=== PATIENT | male | born 1965 | race Two or more races ===

== ENCOUNTER 2021-01-22 15:24 | Outpatient (REF) | payer OTHER, SELFPAY ==
--- NOTE | ~2021-01-22 | XR_ITS ---
EXAMINATION: XR CHEST CLINICAL INFORMATION: COVID COMPARISON: Chest radiographs 10/02/2019 and 07/02/2007 TECHNIQUE: 2 views of the chest were obtained. FINDINGS: There are scattered subtle small airspace opacities mid and lower zones with sparing apices. No lobar or segmental airspace consolidation or effusion. The heart is normal in size. The vascularity is normal. The hilar and mediastinal contours are unremarkable. There are mild degenerative changes thoracic spine. XR/XR chest 2V IMPRESSION: Scattered small bilateral airspace opacities mid and lower zones. No effusion.
== END 2021-01-22 15:25 | disposition home or self-care (01) ==
LOC: HO.XRAY 15:24
PROVIDERS: PCP Internal Medicine; Visit Provider Emergency Medicine
DX: U07.1 COVID-19 (principal); J22 Unspecified acute lower respiratory infection
CPT/HCPCS: 71046

== ENCOUNTER 2021-09-17 13:08 | Outpatient (REF) | payer OTHER, SELFPAY ==
--- NOTE | ~2021-09-17 | US_ITS ---
EXAMINATION: US ABDOMEN COMPLETE CLINICAL INFORMATION: Right upper quadrant pain. COMPARISON: Abdominal ultrasound 02/16/2018 TECHNIQUE: Real-time imaging of the abdominal viscera. FINDINGS: PANCREAS: The head and body the pancreas are normal. The tail is not well visualized due to bowel gas. ABDOMINAL AORTA: The proximal, mid, and distal segments are normal in caliber. INFERIOR VENA CAVA: Visualized portions are normal. LIVER: The liver is normal in size. The liver contour is normal. Liver echotexture is slightly increased. No focal hepatic lesion. There is no intrahepatic biliary duct dilatation seen. GALLBLADDER: Normal. The gallbladder is physiologically distended without evidence of stones, sludge, polyps, wall thickening or pericholecystic fluid. COMMON BILE DUCT: Normal in caliber measuring 0.2 cm in diameter. RIGHT KIDNEY: There is a small 7 x 5 x 4 mm cyst exophytic to the upper to midpole. No hydronephrosis or renal calculi. The kidney measures 11.0 cm in maximum dimension. LEFT KIDNEY: Normal. No hydronephrosis. No renal calculi or focal parenchymal lesions. The kidney measures 11.8 cm in maximum dimension. SPLEEN: Normal. The spleen measures 11.2 cm in maximum dimension. FREE FLUID: None. US/US abdomen complete IMPRESSION: Slightly echogenic liver probably representing fatty infiltration. Small right renal cyst. Limited visualization of the pancreas.
== END 2021-09-17 13:09 | disposition home or self-care (01) ==
LOC: HO.US 13:08
PROVIDERS: PCP Internal Medicine; Visit Provider Emergency Medicine
DX: R10.11 Right upper quadrant pain (principal)
CPT/HCPCS: 76700

== ENCOUNTER 2022-04-01 15:12 | Outpatient (REF) | payer OTHER, SELFPAY ==
--- NOTE | ~2022-04-01 | XR_ITS ---
EXAMINATION: XR LUMBOSACRAL SPINE WITH OBLIQUES CLINICAL INFORMATION: Lower back pain. COMPARISON: None TECHNIQUE: AP, both oblique, and lateral views of the lumbar spine. Lateral view of the lumbosacral junction. FINDINGS: Normal vertebral body alignment. The lumbar lordosis is maintained. No acute fracture or subluxation. No loss of vertebral body height. Multilevel loss of intervertebral disc height with endplate osteophytes throughout the visualized thoracic and lumbar spine. Bridging anterior endplate osteophytes within the lower thoracic spine. No lytic or blastic osseous lesion. Mild bilateral facet arthropathy at L4-L5 and L5-S1. No abnormal soft tissue calcification. XR/XR lumbar spine 4V min IMPRESSION: Mild multilevel degenerative disc disease with bridging anterior endplate osteophytes within the visualized lower thoracic spine. Bilateral facet arthropathy at L4-L5 and L5-S1.
== END 2022-04-01 15:13 | disposition home or self-care (01) ==
LOC: HO.XRAY 15:12
PROVIDERS: PCP Internal Medicine; Visit Provider Emergency Medicine
DX: M54.50 Low back pain, unspecified (principal)
CPT/HCPCS: 72110

== ENCOUNTER 2022-07-22 14:39 | Outpatient (REF) | payer OTHER, SELFPAY ==
--- NOTE | ~2022-07-22 | XR_ITS ---
EXAMINATION: XR HIP, LEFT CLINICAL INFORMATION: Pain COMPARISON: None TECHNIQUE: Two views of the left hip. FINDINGS: Mild left hip arthritis, with the small osteophytes, lateral acetabular subchondral cysts. No acute fracture or dislocation. Visualized pelvic bones are intact. XR/XR hip LT min 2V IMPRESSION: Mild left hip arthritis
--- NOTE | ~2022-07-22 | XR_ITS ---
EXAMINATION: XR FOOT, LEFT CLINICAL INFORMATION: Pain. COMPARISON: None TECHNIQUE: AP, lateral, and oblique views of the left foot. FINDINGS: Soft tissue marker positioned along the medial aspect of the midfoot. Mild Hallux valgus. Mild first MTP arthritis. Small chronic appearing calcification adjacent to the medial aspect of the first metatarsal head. No visible acute fracture or dislocation. Large plantar and posterior calcaneal spur. XR/XR foot LT min 3V IMPRESSION: No radiographic evidence of acute fracture. Arthritis as above. Calculus spurring.
== END 2022-07-22 14:40 | disposition home or self-care (01) ==
LOC: HO.XRAY 14:39
PROVIDERS: PCP Internal Medicine; Visit Provider Internal Medicine
DX: M25.552 Pain in left hip (principal); M79.672 Pain in left foot
CPT/HCPCS: 73502; 73630

== ENCOUNTER 2022-08-20 14:54 | Outpatient (REF) | payer OTHER, SELFPAY ==
--- NOTE | ~2022-08-20 | XR_ITS ---
EXAMINATION: XR CHEST CLINICAL INFORMATION: Hypertension COMPARISON: None TECHNIQUE: 2 views of the chest were obtained. FINDINGS: No significant abnormality is noted involving the heart, lungs, mediastinum, bony thorax or soft tissues. XR/XR chest 2V IMPRESSION: Unremarkable chest exam
== END 2022-08-20 14:55 | disposition home or self-care (01) ==
LOC: HO.XRAY 14:54
PROVIDERS: PCP Internal Medicine; Visit Provider Internal Medicine
DX: I10 Essential (primary) hypertension (principal)
CPT/HCPCS: 71046

== ENCOUNTER 2023-06-15 09:30 | Outpatient (REF) | payer OTHER, SELFPAY ==
[2023-06-15 12:03] LABS: Alanine Aminotransferase 33 U/L (0-40); Albumin Level 4.3 g/dL (3.5-5.0); Alkaline Phosphatase 74 U/L (39-117); Anion Gap 13 (12-20); Aspartate Amino Transferase 19 U/L (5-37); Bilirubin Direct 0.3 mg/dL (0.0-0.5); Bilirubin Total 0.9 mg/dL (0.0-1.0); Blood Urea Nitrogen 13 mg/dL (9-16); Calcium 9.7 mg/dL (8.4-10.2); Carbon Dioxide 22 mmol/L (22-29); Chloride 107 mmol/L (96-108); Estimated Glomerular Filt Rate > 60; Glucose Random 116 mg/dL (60-115); Potassium 4.3 mmol/L (3.3-5.1); Sodium 138 mmol/L (135-145); Total Protein 7.3 g/dL (6.5-8.0)
[2023-06-15 12:13] LABS: Cholesterol 165 mg/dL; HDL Cholesterol 38 mg/dL; LDL Cholesterol Calculated 107 mg/dl; Triglycerides 101 mg/dL
[2023-06-15 13:17] LABS: Reflex LDLD? No
== END 2023-06-15 09:31 | disposition home or self-care (01) ==
LOC: HO.HHCL 09:30
PROVIDERS: Visit Provider Internal Medicine
DX: Z00.00 Encounter for general adult medical examination without abnormal findings (principal); E78.2 Mixed hyperlipidemia; E11.9 Type 2 diabetes mellitus without complications
CPT/HCPCS: 36415; 80048; 80061; 80076

== ENCOUNTER 2024-02-16 15:49 | Outpatient (REF) | payer OTHER, SELFPAY ==
--- NOTE | ~2024-02-16 | XR_ITS ---
EXAMINATION: XR HIP, LEFT CLINICAL INFORMATION: Pain COMPARISON: 07/22/2022 TECHNIQUE: Two views of the left hip. FINDINGS: The visualized bones are intact. The femoral head is well-positioned within the acetabulum. Small osteophytes of the hip. The articular cartilage space is maintained. No evidence of proximal femoral fracture or osteonecrosis. The soft tissues are unremarkable. XR/XR hip LT min 2V IMPRESSION: Mild osteoarthritis of the left hip. No acute abnormality compared to 07/22/2022.
== END 2024-02-16 15:50 | disposition home or self-care (01) ==
LOC: HO.HHCX 15:49
PROVIDERS: Visit Provider Internal Medicine
DX: M25.552 Pain in left hip (principal)
CPT/HCPCS: 73502

== ENCOUNTER 2024-05-09 08:29 | Outpatient (REF) | payer OTHER, SELFPAY ==
[2024-05-09 12:22] LABS: Alanine Aminotransferase 27 U/L (0-40); Albumin Level 4.2 g/dL (3.5-5.0); Alkaline Phosphatase 65 U/L (39-117); Anion Gap 11 (12-20); Aspartate Amino Transferase 25 U/L (5-37); Bilirubin Direct 0.2 mg/dL (0.0-0.5); Bilirubin Total 0.7 mg/dL (0.0-1.0); Blood Urea Nitrogen 17 mg/dL (9-16); Calcium 9.9 mg/dL (8.4-10.2); Carbon Dioxide 27 mmol/L (22-29); Chloride 106 mmol/L (96-108); Cholesterol 196 mg/dL (<200); Estimated Glomerular Filt Rate > 60; Glucose Random 120 mg/dL (60-115); HDL Cholesterol 40 mg/dL (>40); LDL Cholesterol Calculated 131 mg/dL (<100); Potassium 4.4 mmol/L (3.3-5.1); Sodium 140 mmol/L (135-145); Total Protein 7.3 g/dL (6.5-8.0); Triglycerides 128 mg/dL (<150)
[2024-05-09 12:58] LABS: Reflex LDLD? No
== END 2024-05-09 08:30 | disposition home or self-care (01) ==
LOC: HO.HHCL 08:29
PROVIDERS: Visit Provider Internal Medicine
DX: E11.9 Type 2 diabetes mellitus without complications (principal)
CPT/HCPCS: 36415; 80048; 80061; 80076

== ENCOUNTER 2024-08-27 13:36 | Emergency (ER) | payer OTHER, SELFPAY ==
[2024-08-27 13:44] VITALS: BP 110/62; PULSE 70; RESP 18; TEMP 36.9; O2SAT 97; BMI 34.1
--- NOTE | 2024-08-27 13:44 | ED_ITS ---
HPI - Skin/Abscess/Foreign Bdy General Chief complaint: Allergic Reaction Stated complaint: rash? Time Seen by Provider: 08/27/24 13:47 Source: patient, RN notes reviewed and old records reviewed Mode of arrival: ambulatory History of Present Illness ED Provider: Regina Ziegler PA-C [facility] narrative: 58-year-old male with no significant past medical history presenting to the ED complaining of pruritic rash to right inner elbow tetanus 5 days. Admits to similar symptoms in the past. Has been using OTC poison marcellus spray and lotion without relief. Denies rash to other area, SOB, throat closing sensation, new exposures Related Data Previous Rx's ?Medication ?Instructions ?Recorded hydrocortisone 1 % topical cream 1 appl topical BID PRN rash #28.4 08/27/24 grams Allergies Allergy/AdvReac Type Severity Reaction Status Date / Time Penicillins [PENICILLINS] Allergy Unknown PASS OUT Verified 08/27/24 13:45 Review of Systems Review of Systems: Yes all other systems are reviewed and are negative Constitutional: Constitutional: Reports as per [facility] Past Medical History Attestation statement: The following information was validated with the patient. Source: old records reviewed Social History Social History Do you have a plan to hurt others: No Plan Physical Exam Vital Signs: Vital Signs: Last Vital Signs Temp 98.5 F 08/27/24 13:44 Pulse 70 08/27/24 13:44 Resp 18 08/27/24 13:44 BP 110/62 08/27/24 13:44 Pulse Ox 97 08/27/24 13:44 O2 Del Method Room Air 08/27/24 13:44 BMI result Body Mass Index 34.1 Const: General: cooperative, healthy appearing and no acute distress Orientation/consciousness: patient oriented x3 Limitations: no limitations HEENT: Head: Yes normal to inspection and Yes atraumatic Ears: hearing grossly normal bilaterally General nose exam: Normal external nose present Face and sinus: Yes normal facial exam Mouth: Normal oral and palatal mucosa present, no drooling and no muffled voice Throat: Yes uvula midline, No uvula laterally displaced and No uvular edema Eyes: General: appearance normal, both eyes and all related structures EOM: EOMs intact bilaterally Neck: Neck: Yes normal visual inspection and Yes no meningeal signs Resp: Effort & Inspection: normal respiratory effort and no respiratory distress Cardio: Rate: regular rate Skin: Other: + erythematous patch noted to right ante cubital region. Not circumferential. No streaking. No open wounds/lesions. No mucous membrane or palm/sole involvement Wounds: no wounds Neuro: General: patient oriented x3, tone normal and no meningeal signs Cranial nerves: Yes CN's II-XII intact bilaterally Gait exam (Neuro): Normal gait present Extrem: General: Yes normal to inspection Medical Decision Making Medical Decision Making MDM Narrative: 58-year-old male with no significant past medical history presenting to the ED complaining of pruritic rash to right inner elbow tetanus 5 days. On exam vital signs stable, NAD, nontoxic appearing, physical exam as above consistent with dermatitis/eczema. No respiratory involvement, uvula midline, talking in complete sentences. Low suspicion for SJS/TENs or allergic reaction Plan: Topical hydrocortisone, PCP/dermatology follow-up Please refer to course for remaining clinical decision making, interpretation of labs/imaging results, and discussions with consultants and/or family members. Results discussed with patient including worrisome signs and symptoms and strict return precautions, and when to return to the emergency department. They verbalized understanding and feel safe for discharge at this time. Differential Diagnosis Differential Diagnoses: The differential diagnosis associated with the presentation includes As above External Record Review External record reviewed: Inpatient record, Office record, Outpatient record, Prior outpatient labs, Prior outpatient radiology, Primary care record and Outside ED record Tests considered The following testing was considered but not selected: As above Prescription Management I considered prescription management with: Other Discharge Plan Discharge Clinical Impression: Dermatitis Patient Disposition: Home, Self-Care Instructions: Dermatitis (ED) Additional Instructions: Please use topical hydrocortisone cream as prescribed Follow-up with her doctor as well as Dermatology If you develop any shortness of breath, throat closing sensation, persistent or worsening rash return to the ED Prescriptions: New hydrocortisone 1 % cream 1 appl topical BID PRN (Reason: rash) Qty: 28.4 0RF Referrals: [facility] [Outside] Domingo Degroot MD [Primary Care Provider] - Print Language: Russian
[2024-08-27 13:56] VITALS: BP 110/62; PULSE 70; RESP 18; TEMP 36.9; O2SAT 97
== END 2024-08-27 14:03 | disposition home or self-care (01) ==
LOC: HO.ED 14:00
PROVIDERS: Emergency Provider Emergency Medicine; PCP Internal Medicine
DX: L30.9 Dermatitis, unspecified (principal)
CPT/HCPCS: 99282; 99283

== ENCOUNTER 2024-12-02 15:29 | Outpatient (REF) | payer OTHER, SELFPAY ==
--- NOTE | ~2024-12-02 | MR_ITS ---
EXAMINATION: MR FOREARM WITHOUT THEN WITH IV CONTRAST RIGHT HISTORY: RIGHT ARM MASS. TECHNIQUE: Coronal and sagittal T1 and STIR, and axial T1 and fat-suppressed T2-weighted MR images of the right forearm were obtained. Subsequently, axial and coronal fat suppressed T1-weighted images were obtained after the intravenous administration of 10 mm Gadavist. COMPARISON: There are no prior studies for comparison. FINDINGS: There is an ovoid 8.0 x 4.8 x 1.5 cm mass of the brachioradialis muscle which demonstrates fat signal intensity on all sequences and loses signal with fat suppression. A few tiny septations are noted within the mass as well as small vessels. There is no enhancing soft tissue component. Findings are consistent with a lipoma. The remaining visualized muscles demonstrate normal signal intensity. Bone marrow signal intensity is normal. There is no elbow joint effusion. 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 Electronically signed by: Mars Eaton MD 12/05/2024 02:18 PM [facility]
--- OUTSIDE RECORDS SUMMARY | 2024-12-02 16:31 | XMS_ITS | Encounter Summary ---
Author Organization [employer] Address [address] [facility] [address] [place] [address] Care Team Providers Care Audio/Video Technician Name Role Phone Domingo Baker MD Primary Care Provide r Encounter Details Date Type Department Care Team (Late st Contact Info) Description 07/29/[address] [facility]EDS [address] [place] [address] Krystin Reeder LPN Social History Tobacco Use Types Packs/Day Years Used Date Smoking Tobacco: Never Passive Smoke Exposure: Never Smokeless Tobacco: Never Alcohol Use Standard Drinks/Week Comments Never 0 (1 standard drink = 0.6 oz pur e alcohol) Depression Answer Date Recorded Patient Health Questionnaire-9 Score 0 02/17/2023 Depression Answer Date Recorded Patient Health Questionnaire-2 Score 0 02/17/2023 Sex and Gender Information Value Date Recorded Sex Assigned at Male 06/15/2023 9:52 AM EDT Legal Sex Male 3:53 PM EDT Gender Identity Male 06/15/2023 9:52 AM EDT Sexual Orientation Straight 06/22/2023 3: 29 PM EDT Sexual Orientation Choose not to disclose 2022 3:29 PM EDT documented as of this encounter Plan of Treatment Not on file documented as of this encounter Visit Diagnoses Not on filedocumented in this encounter Additional Health Concerns Assessment Noted Time PHQ-9 Depression Total Score: 0 02/18/20 23 2:28 PM EDT documented as of this encounter Care Teams Audio/Video Technician Relationship Specialty Start Date End Date Domingo Baker MD [address] [place] [id number] PCP - General Internal Medicine 10/11/14 documented as of this encounter
--- OUTSIDE RECORDS SUMMARY | 2024-12-02 16:31 | XMS_ITS | Encounter Summary ---
Author Organization [employer] Address [address] [facility] [address] [place] [address] Care Team Providers Care Head Animal Trainer Name Role Phone Domingo Baker MD Primary Care Provide r Encounter Details Date Type Department Care Team (Late st Contact Info) Description 03/30/2023 Orders Only [facility] MED [facility] PEDS [address] [place] [address] Krystin Reeder LPN Social History Tobacco Use Types Packs/Day Years Used Date Smoking Tobacco: Never Assessed Depression Answer Date Recorded Patient Health Questionnaire-9 [...] documented as of this encounter Care Teams Head Animal Trainer Relationship Specialty Start Date End Date Domingo Baker MD [address] [place] [address] PCP - General Internal Medicine 10/11/14 documented as of this encounter
--- OUTSIDE RECORDS SUMMARY | 2024-12-02 16:31 | XMS_ITS | Encounter Summary ---
Author Organization [employer] Address [address] [facility] [address] [place] [address] Care Team Providers Care Gear Milling Machine Set Up Operator Name Role Phone Domingo Baker MD Primary Care Provide r Reason for Referral * Imaging (Routine) - Authorized Specialty Diagnoses / Procedures Referred By Contac t Referred To Contact Radiology Diagnoses Localized swelling, mass and lump, right upper limb Procedures MRI LOWER ARM / RADIUS ULNA RIGHT W WO CONTRAST Domingo Baker MD [address] [place] [address] Phone: tel: fax: [address] Phone: tel: fax: Referral ID Status Reason Start Date Expiration Date V isits Requested Visits Authorized [id number] Authorized 11/22/2024 11/22/2025 1 1 Encounter Details Date Type Department Care Team (Late st Contact Info) Description 11/22/2024 Orders Only [facility] [address] [place], [place] [phone] Domingo Baker MD [address] [place], [place] [phone] Localized swelling, mass and lump, right upper limb (Primary Dx) Social History Tobacco Use Types Packs/Day Years Used Date Smoking Tobacco: Never Passive Smoke Exposure: Never Smokeless Tobacco: Never Alcohol Use Standard Drinks/Week Comments Never 0 (1 standard drink = 0.6 oz pur e alcohol) Depression Answer Date Recorded Patient Health Questionnaire-9 Score 0 05/17/2024 Patient Health Questionnaire-9 Score 0 05/17/2024 Last PHQ-9: Questionnaire Data Not on file 0 05/17/2024 Housing Stability Answer Date Recorded What is your housing situation today? I have mandeep brumfield 05/17/[address] you li ve. Do you have problems with any of the following? None of the above 05/17/2024 Food Insecurity Answer Date Recorded Within the past 12 months, y ou worried that your food would run out before you got money to buy more: Never True 05/17/2024 Within the past 12 months,th e food you bought just didn't last and you didn't have enough money to get more: Never True 07/2024 Transportation Answer Date Recorded In the past 12 months, has l ack of transportation kept you from medical appts, meetings, work or from getting things needed for daily living? No 05/17/2024 Utilities Answer Date Recorded In the past 12 months, has t he electric, gas, oil or water company threatened to shut off services in your home? No 05/17/2024 Depression Answer Date Recorded Patient Health Questionnaire-2 Score 0 05/17/2024 Internet Access Answer Date Recorded Internet Access Q1 Yes 07/10/2024 Internet Access Q2 Not on file 07/10/2024 Sex and Gender Information Value Date Recorded Sex Assigned at Male 06/15/2023 9:52 AM EDT Legal Sex Male 3:53 PM EDT Gender Identity Male 06/15/2023 9:52 AM EDT Sexual Orientation Straight 06/22/2023 3: 29 PM EDT Sexual Orientation Choose not to disclose 2022 3:29 PM EDT documented as of this encounter Plan of Treatment Scheduled Orders Name Type Priority Associated Diagnoses Orde r Schedule MRI LOWER ARM / RADIUS ULNA RIGHT W WO CONTRAST Imaging Routine Localized swelling, mass and lump, right upper limb Expected: 11/22/2024, Expires: 11/22/2025 documented as of this encounter Visit Diagnoses Diagnosis Localized swelling, mass and lump, right upper limb- Primary documented in this encounter Additional Health Concerns Assessment Noted Time PHQ-9 Depression Total Score: 0 07/09/20 24 3:11 PM EDT documented as of this encounter Care Teams Gear Milling Machine Set Up Operator Relationship Specialty Start Date End Date Domingo Baker MD [address] [place] [address] PCP - General Internal Medicine 10/11/14 documented as of this encounter
--- OUTSIDE RECORDS SUMMARY | 2024-12-02 16:31 | XMS_ITS | Encounter Summary ---
Author Organization [employer] Address [address] [facility] [address] [place] [address] Care Team Providers Care Cell Tuber Hand Name Role Phone Domingo Baker MD Primary Care Provide r Reason for Visit * Reason Onset Date Comments Lab Orders 11/10/2024 Encounter Details Date Type Department Care Team ([facility] st Contact Info) Description 11/10/2024 Telephone [facility] MED[facility]INE [address] [place], [place] [phone] Hedy Sepulveda, RN [address] [place] [address] Lab Orders Social History Tobacco Use Types Packs/Day Years [...] PM EDT documented as of this encounter Miscellaneous Notes * Telephone Encounter - Hedy Sepulveda RN - 11/10/2024 10:31 AM EST Telephone call placed to pt. No answer, left detailed v/m informing nonfasting labs ordered and to come in at his earliest convenience to complete. Please ask pt to have labs I ordered, I forgot to mention to patient during the visit documented in this encounter Plan of Treatment Not on file documented as of this encounter Visit Diagnoses Not on filedocumented in this encounter Additional Health Concerns Assessment Noted Time PHQ-9 Depression Total Score: 0 05/17/20 24 3:11 PM EDT documented as of this encounter Care Teams Cell Tuber Hand Relationship Specialty Start Date End Date Domingo Baker MD [address] [place] [id number] PCP - General Internal Medicine 10/11/14 documented as of this encounter
--- OUTSIDE RECORDS SUMMARY | 2024-12-02 16:31 | XMS_ITS | Encounter Summary ---
Author Organization [employer] Address [address] [facility] [address] [place] [address] Care Team Providers Care Tight Barrel Inspector Name Role Phone Domingo Baker MD Primary Care Provide r Encounter Details Date Type Department Care Team (Late st Contact Info) Description 12/25/[address] [facility] MED & PEDS [address] [place] [address] Krystin Reeder LPN Social History Tobacco Use Types Packs/Day Years Used Date Smoking Tobacco: Never Assessed Sex and Gender Information Value Date Recorded [...] Diagnoses Not on filedocumented in this encounter Care Teams Tight Barrel Inspector Relationship Specialty Start Date End Date Domingo Baker MD [address] [place] [address] PCP - General Internal Medicine 10/11/14 documented as of this encounter
--- OUTSIDE RECORDS SUMMARY | 2024-12-02 16:31 | XMS_ITS | Encounter Summary ---
Author Organization [employer] Address [address] [facility] [address] [place] [address] Care Team Providers Care Digital Librarian Name Role Phone Domingo Baker MD Primary Care Provide r Reason for Visit * Reason Comments Med Refill Encounter Details Date Type Department Care Team ([facility] st Contact Info) Description 08/28/2023 Refill [facility] [address] [place], [place] [phone] Domingo Baker MD [address] [place], [place] [phone] Low vitamin D level Social History Tobacco Use Types Packs/Day Years Used Date Smoking Tobacco: Never Passive Smoke Exposure: Never Smokeless Tobacco: Never Alcohol Use Standard Drinks/Week Comments Never 0 (1 standard drink = 0.6 oz pur e alcohol) Depression Answer Date Recorded Patient Health Questionnaire-9 Score 0 02/17/2023 Housing Stability Answer Date Recorded What is your housing situation today? I have mandeep brumfield 08/26/[address] you li ve. Do you have problems with any of the following? None of the above 08/26/2023 Food Insecurity Answer Date Recorded Within the past 12 months, y ou worried that your food would run out before you got money to buy more: Never True 08/26/2023 Within the past 12 months,th e food you bought just didn't last and you didn't have enough money to get more: Never True Transportation Answer Date Recorded In the past 12 months, has l ack of transportation kept you from medical appts, meetings, work or from getting things needed for daily living? No 08/26/2023 Utilities Answer Date Recorded In the past 12 months, has t he electric, gas, oil or water company threatened to shut off services in your home? No 08/26/2023 Depression Answer Date Recorded Patient Health Questionnaire-2 [...] as of this encounter Visit Diagnoses Diagnosis Low vitamin D level documented in this encounter Additional Health Concerns Assessment Noted Time PHQ-9 Depression Total Score: 0 02/18/20 23 2:28 PM EDT documented as of this encounter Care Teams Digital Librarian Relationship Specialty Start Date End Date Domingo Baker MD [address] [place] [id number] PCP - General Internal Medicine 10/11/14 documented as of this encounter
--- OUTSIDE RECORDS SUMMARY | 2024-12-02 16:31 | XMS_ITS | Encounter Summary ---
Author Organization [employer] Address [address] 7t [place] [address] Care Team Providers Care Entertainer Or Variety Artist Name Role Phone Domingo Baker MD Primary Care Provide r Reason for Visit * Reason Comments Eye Problem Encounter Details Date Type Department Care Team ([facility] st Contact Info) Description 11/29/2024 5:40 PM EST Office Visit [facility] [address] [place] [address] Alona Rincon MD [address] [place] [address] Conjunctival hemorrhage of left eye (Primary Dx) Social History Tobacco Use Types [...] is your housing situation today? I have mandeepkeisha brumfield 05/17/[address] you [...] PM EDT documented as of this encounter Last Filed Vital Signs Vital Sign Reading Time Taken Comments Blood Pressure 122/77 11/29/2024 3:13 PM EST Pulse 69 11/29/2024 3:13 PM EST Temperature 36.7 ??C (98.1 ??F) 11/29/2024 3:13 PM ES T Respiratory Rate 16 11/29/2024 3:13 PM EST Oxygen Saturation 99% 11/29/2024 3:13 PM EST Inhaled Oxygen Concentration - - Weight 93.9 kg (207 lb) 11/29/2024 3:13 PM EST Height - - Body Mass Index 32.42 11/08/2024 12:44 PM EST documented in this encounter Progress Notes * Heather Thakur - 11/29/2024 5:40 PM EST Images from the original note were not included. Subjective Patient ID: Matthew Gong is a 58 y.o. male who presents to walk in clinic for Eye Problem. Pt reports on Thursday he was shoveling snow and felt something in his eye. He has had pain in his eye since Thursday. Pt reports he has had this happened in the past, but not as severe. He does take ASA, but no other anticoagulation. Pt follows with [facility]. He denies any vision changes. Review of Systems Constitutional: Negative for fever and unexpected weight change. Eyes: Positive for pain and redness. Respiratory: Negative for shortness of breath. Cardiovascular: Negative for chest pain. Gastrointestinal: Negative for abdominal pain. Genitourinary: Negative for difficulty urinating. Objective Visit Vitals BP 122/77 (BP Location: Left arm, Patient Position: Sitting, BP Cuff Size: Adult) Pulse 69 Temp 98.1 ??F (36.7 ??C) (Temporal) Resp 16 Body mass index is 32.42 kg/m??. Physical Exam Eyes: General: Vision grossly intact. Left eye: No foreign body. Conjunctiva/sclera: Left eye: Hemorrhage (large subconjunctival, across sparing the sclerae) present. Problem List Items Addressed This Visit Conjunctival hemorrhage of left eye - Primary Called [facility] and as recommended, advised pt supportive care. Recommended getting in to see [facility] sooner or if anything worsens. -No evidence of acute disease process. Suspect subconjunctival hemorrhage likely due to FB in eye previously. No FB visualized today. -ER precautions discussed. -Seek medical attention for worsening symptoms. I, Heather Thakur, am serving as a scribe to document services personally performed by Dr. Enrique, based on the patient's response to questions by provider and providers statements to me. documented in this encounter Miscellaneous Notes * Assessment & Plan Note - Heather Thakur - 11/29/2024 3:27 PM ESTAssociated Problem(s): Conjunctival hemorrhage of left eye Called [facility] and as recommended, advised pt supportive care. Recommended getting in to see [facility] sooner or if anything worsens. documented in this encounter Plan of Treatment Not on file documented as of this encounter Visit Diagnoses Diagnosis Conjunctival hemorrhage of left eye- Primary documented in this encounter Additional Health Concerns Assessment Noted Time PHQ-9 Depression Total Score: 0 05/17/20 24 3:11 PM EDT documented as of this encounter Care Teams Entertainer Or Variety Artist Relationship Specialty Start Date End Date Domingo Baker MD [address] [place] [address] PCP - General Internal Medicine 10/11/14 documented as of this encounter
--- OUTSIDE RECORDS SUMMARY | 2024-12-02 16:31 | XMS_ITS | Encounter Summary ---
Author Organization [employer] Address [address] [facility] 7t [place] [address] Care Team Providers Care Documentation Analyst Name Role Phone Domingo Baker MD Primary Care Provide r Reason for Visit * Reason Comments Med Refill Encounter Details Date Type Department Care Team ([facility] st Contact Info) Description 11/30/2024 Refill [facility] [address] [place], [place] [phone] Domingo Baker MD [address] [place], [place] [phone] Social History Tobacco Use Types Packs/Day Years [...] documented as of this encounter Care Teams Documentation Analyst Relationship Specialty Start Date End Date Domingo Baker MD [address] [place] [id number] PCP - General Internal Medicine 10/11/14 documented as of this encounter
--- OUTSIDE RECORDS SUMMARY | 2024-12-02 16:31 | XMS_ITS | Encounter Summary ---
Author Organization [employer] Address [address] [facility] 7t [place] [address] Care Team Providers Care Communication Studies Professor Name Role Phone Domingo Baker MD Primary Care Provide r Reason for Visit * Reason Onset Date Comments MRI LOWER ARM ORDER 11/22/2024 Encounter Details Date Type Department Care Team ([facility] st Contact Info) Description 11/22/2024 Telephone [facility] [address] [place], [place] [phone] Domingo Baker MD [address] [place] [address] MRI LOWER ARM ORDER Social History Tobacco Use Types Packs/Day Years [...] encounter Miscellaneous Notes * Telephone Encounter - Susan Sarmiento - 11/22/2024 10:32 AM EST MRI LOWER ARM needs to be WITH AND WITHOUT CONTRAST. Please update order. Thank you documented in this encounter Plan of Treatment Not on file documented as of this encounter Visit Diagnoses Not on filedocumented in this encounter Additional Health Concerns Assessment Noted Time PHQ-9 Depression Total Score: 0 05/17/20 24 3:11 PM EDT documented as of this encounter Care Teams Communication Studies Professor Relationship Specialty Start Date End Date Domingo Baker MD [address] [place] [address] PCP - General Internal Medicine 10/11/14 documented as of this encounter
--- OUTSIDE RECORDS SUMMARY | 2024-12-02 16:31 | XMS_ITS | Encounter Summary ---
Author Organization [employer] Address [address] [facility] [address] [address] 7t [place] [address] Care Team Providers Care Rn Field Case Manager Name Role Phone Domingo Baker MD Primary Care Provide r Encounter Details Date Type Department Care Team (Latest Contact Info) Description 11/08/2024 Travel Social History Tobacco Use Types Packs/Day Years [...] documented as of this encounter Care Teams Rn Field Case Manager Relationship Specialty Start Date End Date Domingo Baker MD [address] [place] [address] PCP - General Internal Medicine 10/11/14 documented as of this encounter
--- OUTSIDE RECORDS SUMMARY | 2024-12-02 16:31 | XMS_ITS | Encounter Summary ---
Author Organization [employer] Address [address] 7t [place] [address] Care Team Providers Care College Or University Department Head Name Role Phone Domingo Baker MD Primary Care Provide r Encounter Details Date Type Department Care Team (Late st Contact Info) Description 11/10/2024 Telephone [facility] [address] [place], [place] [phone] Domingo Baker MD [address] [place], [place] [phone] Social History Tobacco Use Types Packs/Day Years [...] documented as of this encounter Care Teams College Or University Department Head Relationship Specialty Start Date End Date Domingo Baker MD [address] [place] [id number] PCP - General Internal Medicine 10/11/14 documented as of this encounter
--- OUTSIDE RECORDS SUMMARY | 2024-12-02 16:31 | XMS_ITS | Encounter Summary ---
Author Organization [employer] Address [address] [facility] 7t [place] [address] Care Team Providers Care Sub Assembly Team Worker Name Role Phone Domingo Baker MD Primary Care Provide r Reason for Visit * Reason Comments Med Refill Encounter Details Date Type Department Care Team ([facility] st Contact Info) Description 03/08/2024 Refill [facility] [address] [place], [place] [phone] Domingo Baker MD 230 [place], [place] [phone] Primary hypertension Social History Tobacco Use Types Packs/Day Years [...] as of this encounter Visit Diagnoses Diagnosis Primary hypertension Unspecified essential hypertension documented in this encounter Additional Health Concerns Assessment Noted Time PHQ-9 Depression Total Score: 0 02/18/20 23 2:28 PM EDT documented as of this encounter Care Teams Sub Assembly Team Worker Relationship Specialty Start Date End Date Domingo Baker MD [address] [place] [id number] PCP - General Internal Medicine 10/11/14 documented as of this encounter
--- OUTSIDE RECORDS SUMMARY | 2024-12-02 16:31 | XMS_ITS | Encounter Summary ---
Author Organization [facility] Address [address] [facility] 7t [place] [address] Care Team Providers Care Package Car Driver Name Role Phone Domingo Baker MD Primary Care Provide r Reason for Visit * Reason Comments Med Refill Encounter Details Date Type Department Care Team ([facility] st Contact Info) Description 02/23/2023 Refill [facility] 230 [place], [place] [phone] Domingo Baker MD [address] [place], [place] [phone] Primary hypertension Social History Tobacco Use Types [...] not to disclose 2022 3:29 PM EDT COVID-19 Exposure Response Date Recorded In the last 10 days, have yo u been in contact with someone who was confirmed or suspected to have Coronavirus/COVID-19? No / Unsure 02/17/2023 2:06 PM EDT documented as of this encounter Plan of Treatment Not on file documented as of this encounter Visit Diagnoses Diagnosis Primary hypertension Unspecified essential hypertension documented in this encounter Additional Health Concerns Assessment Noted Time PHQ-9 Depression Total Score: 0 02/18/20 23 2:28 PM EDT documented as of this encounter Care Teams Package Car Driver Relationship Specialty Start Date End Date Domingo Baker MD [address] [place] [address] PCP - General Internal Medicine 10/11/14 documented as of this encounter
--- OUTSIDE RECORDS SUMMARY | 2024-12-02 16:31 | XMS_ITS | Encounter Summary ---
Author Organization [employer] Address [address] [facility] 7t [place] [address] Care Team Providers Care Transportation Operations Manager Name Role Phone Domingo Baker MD Primary Care Provide r Reason for Visit * Reason Comments Med Refill Encounter Details Date Type Department Care Team ([facility] st Contact Info) Description 08/05/2023 Refill [facility] 230 [place], [place] [phone] Domingo Baker MD [address] [place], [place] [phone] Social History Tobacco Use Types Packs/Day Years [...] documented as of this encounter Care Teams Transportation Operations Manager Relationship Specialty Start Date End Date Domingo Baker MD [address] [place] [address] PCP - General Internal Medicine 10/11/14 documented as of this encounter
--- OUTSIDE RECORDS SUMMARY | 2024-12-02 16:31 | XMS_ITS | Encounter Summary ---
Author Organization [employer] Address [address] [facility] 7t [place] [address] Care Team Providers Care Subway Guard Name Role Phone Domingo Baker MD Primary Care Provide r Reason for Visit * Reason Onset Date Comments Returning Call 02/09/2024 Encounter Details Date Type Department Care Team ([facility] st Contact Info) Description 02/09/2024 Telephone [facility] 230 [place], [place] [phone] Domingo Baker MD [address] [place], [place] [phone] Returning Call Social History Tobacco Use Types Packs/Day Years [...] encounter Miscellaneous Notes * Telephone Encounter - Mark Rajinder - 02/09/2024 4:17 PM EDT Tc from pt returning call regarding message below. KARMEN Harvey placed outbound call to patient to complete pre-visit planning. No answer at this time. Patient name and were not confirmed. CC left voicemail requesting return call. Direct contactinformation provided. Please contact pt at [phone]. documented in this encounter Plan of Treatment Not on file documented as of this encounter Visit Diagnoses Not on filedocumented in this encounter Additional Health Concerns Assessment Noted Time PHQ-9 Depression Total Score: 0 02/18/20 23 2:28 PM EDT documented as of this encounter Care Teams Subway Guard Relationship Specialty Start Date End Date Domingo Baker MD [address] [place] [phone] PCP - General Internal Medicine 10/11/14 documented as of this encounter
--- OUTSIDE RECORDS SUMMARY | 2024-12-02 16:31 | XMS_ITS | Encounter Summary ---
Author Organization [employer] Address [address] [facility] 7t [place] [address] Care Team Providers Care Accountant Clerk Name Role Phone Domingo Baker MD Primary Care Provide r Encounter Details Date Type Department Care Team (Late st Contact Info) Description 03/13/2023 Abstract [facility] MED[facility] 230 [place], [place] [phone] Domingo Baker MD 230 [place], [place] [phone] Social History Tobacco Use Types Packs/Day Years [...] on file documented as of this encounter Procedures Procedure Name Priority Date/Time Associated Diagnosis Comments HM COLONOSCOPY Routine 03/24/2018 documented in this encounter Results * Hm Colonoscopy (03/24/2018) Colonoscopy Normal Normal 03/24/2018 Narrative Janie Pisano - 03/24/2018 1:10 PM EDT Recommended 10 year follow up ( see scanned notes ) us Historical Provider MD HEALTH MAINTENANCE Final Result documented in this encounter Visit Diagnoses Not on filedocumented in this encounter Additional Health Concerns Assessment Noted Time PHQ-9 Depression Total Score: 0 02/18/20 23 2:28 PM EDT documented as of this encounter Care Teams Accountant Clerk Relationship Specialty Start Date End Date Domingo Baker MD [address] [place] [id number] PCP - General Internal Medicine 10/11/14 documented as of this encounter
--- OUTSIDE RECORDS SUMMARY | 2024-12-02 16:31 | XMS_ITS | Encounter Summary ---
Author Organization [email or web address] Address [address] [facility] 7t [place] [address] Care Team Providers Care Licensed Psychiatric Technician Name Role Phone Domingo Baker MD Primary Care Provide r Reason for Referral * Consultation (Routine) - Authorized Specialty Diagnoses / Procedures Referred By Emilie guillen Referred To Contact Family Medicine Diagnoses Katiechia Domingo Baker MD [address] [place], [place] Phone: tel: fax: Referral ID Status Reason Start Date Expiration Date Visits Requested Visits Authorized [id number] Authorized Specialty Services Required 11/08/2025 1 1 * Consultation (Routine) - Closed Specialty Diagnoses / Procedures Referred By Emilie guillen Referred To Contact General Surgery Diagnoses Umbilical hernia without obstruction and without gangrene Domingo Baker MD [address] [place], [place] Phone: tel: fax: Frank Ornelas MD [address] [place], [place] Phone: tel: Referral ID Status Reason Start Date Expiration Date V isits Requested Visits Authorized [id number] Closed Specialty Services Required 11/08/2024 11/08/2025 1 1 Reason for Visit * Reason Comments sick onsite Pt believes he has f ungus under his fingernail Encounter Details Date Type Department Care Team (Late st Contact Info) Description 11/08/2024 12:30 PM EST Office Visit [facility] [address] [facility] [place] [place] [phone] Domingo Baker MD [address] [place] [phone] Umbilical hernia without obstruction and without gangrene (Primary Dx); Melanonychia; Type 2 diabetes mellitus without complication, without long-term current use of insulin ([facility]) Social History Tobacco Use Types Packs/Day Years [...] Sign Reading Time Taken Comments Blood Pressure 115/84 11/08/2024 12:44 PM EST Pulse 90 11/08/2024 12:44 PM EST Temperature 36.2 ??C (97.1 ??F) 11/08/2024 12:[address] Respiratory Rate 20 11/08/2024 12:44 PM EST Oxygen Saturation 98% 11/08/2024 12:44 PM EST Inhaled Oxygen Concentration - - Weight 92.5 kg (204 lb) 11/08/2024 12:44 PM EST Height 170.2 cm (5' 7 ) 11/08/2024 12:44 PM EST Body Mass Index 31.95 11/08/2024 12:44 PM EST documented in this encounter Progress Notes * Domingo Freed MD - 11/08/2024 12:30 PM EST SUBJECTIVE Mtathew Gong is a 58 y.o. male who presents for sick onsite (Pt believes he has fungus under his fingernail). Pt here with 2 concerns: 1.- Noticed a lump on his umbilicus 2.-Noticed his fingernails to be thickened and discolored Review of Systems Constitutional: Negative for fever. HENT: Negative for sore throat. Respiratory: Negative for cough and shortness of breath. Cardiovascular: Negative for chest pain. Gastrointestinal: Negative for abdominal pain. Neurological: Negative for headaches. Allergies Allergen Reactions Penicillins Dizziness OBJECTIVE Vitals: 11/08/24 1244 BP: 115/84 BP Location: Left arm Patient Position: Sitting BP Cuff Size: Large adult Pulse: 90 Resp: 20 Temp: 97.1 ??F (36.2 ??C) TempSrc: Temporal SpO2: 98% Weight: 204 lb (92.5 kg) Height: 5' 7 (1.702 m) Physical Exam Vitals reviewed. Constitutional: Appearance: Normal appearance. HENT: Head: Normocephalic and atraumatic. Right Ear: External ear normal. Left Ear: External ear normal. Nose: Nose normal. Mouth/Throat: Mouth: Mucous membranes are moist. Eyes: Conjunctiva/sclera: Conjunctivae normal. Cardiovascular: Rate and Rhythm: Normal rate and regular rhythm. Pulmonary: Effort: Pulmonary effort is normal. Breath sounds: Normal breath sounds. Abdominal: Hernia: A hernia is present. Hernia is present in the umbilical area. Skin: General: Skin is warm. Comments: Pt with multiple dark lines on fingernails Neurological: Mental Status: He is alert. Mental status is at baseline. Assessment/Plan Problem List Items Addressed This Visit Umbilical hernia without obstruction and without gangrene - Primary Patient with a small umbilical hernia, easily reducible Plan: Referral to general surgery, discussed with pt concerning symptoms for which he would need topresent himself to the ER Relevant Orders Referral to General Surgery Melanonychia Pt with new onset of dark line on finger nails. Upon further conversation, it appears that pt has been using hair coloring. I have discussed with him to stop using his hands to apply . Pt seems insistent that he had them before he was using the hair coloring. Plan: Will refer to our Derm clinic for evaluation. Will also obtains basic blood work to rule out any systemic illness, although he has no systemic symptoms Relevant Orders Referral to [facility] Derm Skin Adult Comprehensive Metabolic Panel TSH with Reflex to Free T4 Vitamin B12/Folate, Serum Panel CBC auto differential Type 2 diabetes mellitus without complication (CMS/HCC) Patient is here for a f/u DM today controlled Glucose today 111 Hgb A1c 09/22/2024 : 6.2 Eye exam ordered previously Microalbumin 12/31/2021 was 0.2 Pt on an SERGIO inhibitor Foot check risk zero Plan: continue Metformin 500 mg po q pm Continue Asa 81 mg po daily Pt advised to: adhere to diabetic diet check your blood sugars regularly check your feet on a daily basis. f/u in 4 months Relevant Orders POCT Glucose (Completed) documented in this encounter Miscellaneous Notes * Assessment & Plan Note - Domingo Freed MD - 11/08/2024 1:13 PM EST Associated Problem(s): Type 2 diabetes mellitus without complication (CMS/HCC) Patient is here for a f/u DM today controlled Glucose today 111 Hgb A1c 09/22/2024 : 6.2 Eye exam ordered previously Microalbumin 12/31/2021 was 0.2 Pt on an SERGIO inhibitor Foot check risk zero Plan: continue Metformin 500 mg po q pm Continue Asa 81 mg po daily Pt advised to: adhere to diabetic diet check your blood sugars regularly check your feet on a daily basis. f/u in 4 months * Assessment & Plan Note - Domingo Freed MD - 11/08/2024 1:11 PM EST Associated Problem(s): Melanonychia Pt with new onset of dark line on finger nails. Upon further conversation, it appears that pt has been using hair coloring. I have discussed with him to stop using his hands to apply . Pt seems insistent that he had them before he was using the hair coloring. Plan: Will refer to our Derm clinic for evaluation. Will also obtains basic blood work to rule out any systemic illness, although he has no systemic symptoms * Assessment & Plan Note - Domingo Freed MD - 11/08/2024 1:05 PM EST Associated Problem(s): Umbilical hernia without obstruction and without gangrene Patient with a small umbilical hernia, easily reducible Plan: Referral to general surgery, discussed with pt concerning symptoms for which he would need topresent himself to the ER documented in this encounter Plan of Treatment Scheduled Orders Name Type Priority Associated Diagnoses Orde r Schedule Comprehensive Metabolic Panel Lab Routine Melanonychia Ordered: 11/08/2024 TSH with Reflex to Free T4 Lab Routine Melanonychia Ordered: 11/08/2024 Vitamin B12/Folate, Serum Panel Lab Routine Melanonychia Expected: 11/08/2024, Expires: 11/08/2025 CBC auto differential Lab Routine Melanonychia Expected: 11/08/2024 (Approximate), Expires: 11/08/2025 Scheduled Referrals Name Type Priority Associated Diagnoses Orde r Schedule Referral to General Surgery Outpatient Referral Routine Umbilical hernia without obstruction and without gangrene Expected: 11/08/2024 (Approximate), Expires: 11/08/2025 Referral to [facility] Derm Skin Adult Outpatient Referral Routine Melanonychia Expected: 11/08/2024 (Approximate), Expires: 11/08/2025 documented as of this encounter Procedures Procedure Name Priority Date/Time Associated Diagnosis Comments POCT GLUCOSE Routine 11/08/2024 12:52 PM EST Type 2 diabetes mellitus without complication, without long-term current use of insulin ([facility]) documented in this encounter Results * POCT Glucose (11/08/2024 12:52 PM EST) Glucose Blood, POC 111 60 - 200 mg/dL QC Media Lot # [id number] Lot# Expiration Date ,575, Blood Capillary blood specimen / Unknown 11/08/2024 12:52 PM EST Domingo Freed MD POINT OF CARE TEST EN TER/EDIT ORDERABLES Final Result documented in this encounter Visit Diagnoses Diagnosis Umbilical hernia without obstruction and without gangrene- Primary Melanonychia Other specified disease of nail Type 2 diabetes mellitus without complication, without long-term current use of insulin ([facility]) documented in this encounter Additional Health Concerns Assessment Noted Time PHQ-9 Depression Total Score: 0 05/17/20 24 3:11 PM EDT documented as of this encounter Care Teams Licensed Psychiatric Technician Relationship Specialty Start Date End Date Domingo Baker MD [address] [place] [id number] PCP - General Internal Medicine 10/11/14 documented as of this encounter
--- OUTSIDE RECORDS SUMMARY | 2024-12-02 16:31 | XMS_ITS | Clinical Summary ---
Author Organization [employer] Address [address] [facility] [address] [place] [address] Care Team Providers Care Salesperson Sewing Machines Name Role Phone Domingo Baker MD Primary Care Provide r Allergies Active Allergy Reactions Criticality Noted Date Comments Penicillins Dizziness 08/31/2013 Medications vardenafil (Levitra) 10 MG tablet TAKE 1 TABLET 1 HOUR BEFORE SEXUAL RELATIONS ONCE DAILY NEEDED. 8 tablet 6 07/30/20 23 Active Vitamin D High Potency 25 MCG (1000 UT) capsuleIndication s:Low vitamin D level TAKE 1 CAPSULE BY MOUTH EVERY DAY 90 capsule 12/10/19 24 Active FREESTYLE LITE test stripIndications: Type 2 diabetes mellitus without complications (CMS/HCC) TEST BLOOD SUGAR TWICE DAILY DIRECTED 50 strip 6 02/16/20 24 Active lisinopril 20 MG tabletIndications :Primary hypertension TAKE 1 TABLET BY MOUTH EVERY DAY 30 tablet 5 07/07/20 24 Active Aspirin Low Dose 81 MG EC tablet TAKE 1 TABLET BY MOUTH EVERY DAY IN THE MORNING 30 tablet 2 07/14/20 24 Active triamcinolone (Kenalog) 0.1 % cream Apply topically if needed in the morning and at bedtime (pain and swelling). 30 g 2 08/30/20 24 Active rosuvastatin (Crestor) 40 MG tabletIndications :Mixed hyperlipidemia Take 1 tablet (40 mg) by mouth Once per day. 30 tablet 6 09/22/20 24 Active metFORMIN (Glucophage) 500 MG tablet TAKE 1 TABLET BY MOUTH EVERY DAY IN THE EVENING WITH A MEAL 90 tablet 2 12/01/19 25 Active metFORMIN (Glucophage) 500 MG tablet TAKE 1 TABLET BY MOUTH EVERY DAY IN THE EVENING WITH A MEAL 90 tablet 2 02/11/20 24 025 Discontinued Active Problems Problem Noted Date Diagnosed Date Conjunctival hemorrhage of left eye 11/29/2024 Assessment & Plan (11/29/2024 3:27 PM EST): Called [facility] and as recommended, advised pt supportive care. Recommended getting in to see [facility] sooner or if anything worsens. Umbilical hernia without obstruction and without gangrene 11/08/2024 Assessment & Plan (11/08/2024 1:05 PM EST): Patient with a small umbilical hernia, easily reducible Plan: Referral to general surgery, discussed with pt concerning symptoms for which he would need to present himself to the ER [facility] 11/08/2024 Assessment & Plan (11/08/2024 1:11 PM EST): Pt with new onset of dark line [...] illness, although he has no systemic symptoms Localized swelling, mass and lump, right upper l imb 09/22/2024 Assessment & Plan (09/22/2024 3:41 PM EST): Palpable superficial mass right anterior arm approx 2 x 3 inch. Painless, Pt tells me he has had that for years Plan: MRI right arm to evaluate the mass Preventative health care 05/17/2024 Assessment & Plan (05/17/2024 8:14 AM EDT): PSA 07/28/2022: 0.65 Will order one today Colonoscopy: 03/2018 Normal aside from diverticulosis Vaccines: TDAP: 02/22/2015 Pain of left hip 02/16/2024 Assessment & Plan (05/17/2024 8:09 AM EDT): Patient with previous c/o intermittent left sided hip pain, mainly when ambulating On exam full ROM Plain films left hip 02/2024 showed: Mild osteoarthritis of the left hip. No acute abnormality compared to 07/22/2022. Assessment & Plan (02/16/2024 3:30 PM EDT): Patient with c/o intermittent left sided hip pain, mainly when ambulating On exam full ROM Plan: Plain films left hip Type 2 diabetes mellitus without complication Assessment & Plan (11/08/2024 1:13 PM EST): Patient is here for a f/u DM [...] a daily basis. f/u in 4 months Assessment & Plan (09/22/2024 3:30 PM EST): Patient is here for a f/u DM today controlled Glucometer average Hgb A1c 09/22/2024 : 6.2 Eye exam ordered previously Microalbumin 12/31/2021 was 0.2 Pt on an SERGIO inhibitor Foot check risk zero Plan: continue Metformin 500 mg po q pm Continue Asa 81 mg po daily Pt advised to: adhere to diabetic diet check your blood sugars regularly check your feet on a daily basis. f/u in 4 months Assessment & Plan (05/17/2024 3:11 PM EDT): Patient is here for a f/u DM today controlled Glucometer average Hgb A1c 05/17/2024 : 6.2 from 6.1 Eye exam ordered previously Microalbumin 12/31/2021 was 0.2 Pt on an SERGIO inhibitor Foot check risk zero Plan: continue Metformin 500 mg po q pm Continue Asa 81 mg po daily Pt advised to: adhere to diabetic diet check your blood sugars regularly check your feet on a daily basis. f/u in 4 months Assessment & Plan (02/16/2024 3:19 PM EDT): Patient is here for a f/u DM today controlled Glucometer average Hgb A1c 02/16/2024 : 6.1 Eye exam ordered previously Microalbumin 12/31/2021 was 0.2 Pt on an SERGIO inhibitor Foot check risk Plan: continue Metformin 500 mg po q pm Continue Asa 81 mg po daily Pt advised to: adhere to diabetic diet check your blood sugars regularly check your feet on a daily basis. f/u in 4 months Assessment & Plan (02/17/2023 2:42 PM EDT): Patient is here for a f/u DM today controlled Glucometer average Hgb A1c 02/17/2023: 5.9 Eye exam ordered previously Microalbumin 12/31/2021 was 0.2 Pt on an SERGIO inhibitor Foot check risk Plan: continue Metformin 500 mg po q pm Continue Asa 81 mg po daily Pt advised to: adhere to diabetic diet check your blood sugars regularly check your feet on a daily basis. f/u in 4 months Mixed hyperlipidemia 02/17/2023 Assessment & Plan (09/22/2024 3:38 PM EST): Here for a f/u Patient with elevated lipids. Most recent lipid profile from: 05/09/2024 Lab Results Component Value Date TRIG 128 05/09/2024 TRIG 101 06/15/2023 CHOL 196 05/09/2024 CHOL 165 06/15/2023 LDLCHOLCAL 131 (H) 05/09/2024 LDLCHOLCAL 107 06/15/2023 HDL 40 (L) 05/09/2024 HDL 38 06/15/2023 Currently on: Crestor 20 mg po at bedtime Pt c/o feeling tired and 'strange feelings Plan: Increase Crestor 40 mg po qhs advised to try to adhere to a low cholesterol diet, counseled and educated about diet and exercise, Patient encouraged to come up with a personal goal for weight loss. Assessment & Plan (05/17/2024 3:08 PM EDT): Here for a f/u Patient with elevated lipids. Most recent lipid profile from: 05/09/2024 Lab Results Component Value Date TRIG 128 05/09/2024 TRIG 101 06/15/2023 CHOL 196 05/09/2024 CHOL 165 06/15/2023 LDLCHOLCAL 131 (H) 05/09/2024 LDLCHOLCAL 107 06/15/2023 HDL 40 (L) 05/09/2024 HDL 38 06/15/2023 Currently on: Atorvastatin 40 mg po at bedtime Pt c/o feeling tired and 'strange feelings Plan: DC Atorvastatin Start Crestor 20 mg po qhs advised to try to adhere to a low cholesterol diet, counseled and educated about diet and exercise, Patient encouraged to come up with a personal goal for weight loss. Assessment & Plan (06/16/2023 3:24 PM EDT): Here for a f/u Patient with elevated lipids. Most recent lipid profile from: 06/15/2023 shows a total cholesterol of: 165 triglycerides of: 101 HDL of: 38 and LDL of: 107 Currently on: Atorvastatin 40 mg po qhs advised to try to adhere to a low cholesterol diet, counseled and educated about diet and exercise, Patient encouraged to come up with a personal goal for weight loss. Assessment & Plan (02/17/2023 2:28 PM EDT): Here for a f/u Patient with elevated lipids. Most recent lipid profile from: 07/29/2022 shows a total cholesterol of: 152 triglycerides of: 97 HDL of: 42 and LDL of: 91 Currently on: Atorvastatin 40 mg po qhs will repeat Lipid profile advised to try to adhere to a low cholesterol diet, counseled and educated about diet and exercise, Patient encouraged to come up with a personal goal for weight loss. Essential hypertension 02/17/2023 Assessment & Plan (05/17/2024 8:08 AM EDT): Patient here for a f/u BP today is controlled Most recent electrolytes, Bun and Creatinine done on: 05/09/2024 were within normal limits. patient advised to adhere to a low sodium diet, encouraged about medication compliance, counseled about weight loss. EKG 02/16/2024 : NSR No acute ST t changes Assessment & Plan (02/16/2024 3:35 PM EDT): Patient here for a f/u BP today controlled Most recent electrolytes, Bun and Creatinine done on: 06/15/2023 were within normal limits. Today will order a repeat BMP patient advised to adhere to a low sodium diet, encouraged about medication compliance, counseled about weight loss. EKG 02/16/2024 : NSR No acute ST t changes Assessment & Plan (06/16/2023 3:22 PM EDT): Patient here for a f/u BP today controlled Most recent electrolytes, Bun and Creatinine done on: 06/15/2023 were within normal limits. patient advised to adhere to a low sodium diet, encouraged about medication compliance, counseled about weight loss. Assessment & Plan (02/17/2023 2:26 PM EDT): Patient here for a f/u BP today controlled Most recent electrolytes, Bun and Creatinine done on: 07/29/2022 were within normal limits. BMP ordered patient advised to adhere to a low sodium diet, encouraged about medication compliance, counseled about weight loss. Erectile dysfunction 02/17/2023 Trigger middle finger of left hand 02/17/2023 Assessment & Plan (06/16/2023 3:28 PM EDT): Pt with c/o left middle finger locking in Seen by Ortho hand specialist Dr Howe received a steroid injections Assessment & Plan (02/17/2023 2:35 PM EDT): Pt with c/o left middle finger locking in Plan: Referral with Ortho hand specialist Dr Howe Obstructive sleep apnea syndrome 08/31/2013 Obesity 03/21/2013 Assessment & Plan (05/17/2024 8:09 AM EDT): Patient has been counseled and educated about diet and exercise. Personal goal of weight loss discussedPatient has comorbidity of:Patient has comorbidity of: DM Assessment & Plan (06/16/2023 3:30 PM EDT): Patient has been counseled and educated about diet and exercise. Personal goal of weight loss discussedPatient has comorbidity of:Patient has comorbidity of: DM Encounters Date Type Department Care Team Description 11/30/2024 Refill [facility] [address] Domingo Baker MD 11/29/2024 5:40 PM EST Office Visit [facility] [place] [address] Alona Rincon MD Conjunctival hemorrhage of left eye (Primary Dx) 11/23/2024 Telephone [facility] [address] Domingo Baker MD January Recall 11/22/2024 Orders Only [place] [address] Domingo Baker MD Localized swelling, mass and lump, right upper limb (Primary Dx) 11/22/2024 Telephone [facility] [place] [address] Domingo Baker MD MRI LOWER ARM ORDER 11/10/2024 Telephone [facility] [address] Hedy Sepulveda, semiconductor package symbol stamper Orders 11/10/2024 Telephone [facility] [address] Domingo Baker MD 11/08/2024 12:30 PM EST Office Visit [facility] [address] Domingo Baker MD Umbilical hernia without obstruction and without gangrene (Primary Dx); Melanonychia; Type 2 diabetes mellitus without complication, without long-term current use of insulin ([facility]) 11/08/2024 Travel 10/26/2024 Telephone [facility] [place] [address] Domingo Baker MD MRI UPPER, LOWER ARM ORDERS 10/26/2024 Telephone [facility] [address] Domingo Baker MD Chart Prep 09/22/2024 3:00 PM EST Office Visit [facility] [address] [place] [address] Domingo Baker MD Localized swelling, mass and lump, right upper limb (Primary Dx); Type 2 diabetes mellitus without complication, without long-term current use of insulin ([facility]); Mixed hyperlipidemia; Encounter for immunization 09/22/2024 Travel 09/16/2024 Telephone [facility] [address] [place] [address] Domingo Baker MD Chart Prep 09/13/2024 Patient Outreach [facility] [address] [place] [address] Domingo Baker MD Pre-visit Planning (Pre-visit planning - LVM ) 09/05/2024 3:40 PM EDT Office Visit [facility] [address] [place] [phone] Ivette Beckman FNP Rash (Primary Dx) from Last 3 Months Immunizations Name Administration Dates Next Due Influenza injectable quadriv alent IIV4 with preservative 08/27/2017 Influenza injectable quadriv alent preservative free 07/29/2022,08/19/2021,12/13/2019,2015 Influenza, Split (incl. erasmo fied surface antigen) 03/21/2013 Influenza, seasonal, injecta ble, preservative free 09/22/2024 Pfizer Covid-19 Vaccine 12+ jolanta-sucrose (Damon Cap) 05/02/2022 Tdap 02/22/2015 Social History Tobacco Use Types Packs/Day Years Used Date Smoking Tobacco: Never Passive Smoke Exposure: Never Smokeless Tobacco: Never Tobacco Cessation:Counseling Given: Not Answered Alcohol Use Standard Drinks/Week Comments Never 0 [...] not to disclose 2022 3:29 PM EDT Last Filed Vital Signs Vital Sign Reading Time Taken Comments Blood Pressure 122/77 11/29/2024 3:13 PM EST Pulse 69 11/29/2024 3:13 PM EST Temperature 36.7 ??C (98.1 ??F) 11/29/2024 3:13 PM ES T Respiratory Rate 16 11/29/2024 3:13 PM EST Oxygen Saturation 99% 11/29/2024 3:13 PM EST Inhaled Oxygen Concentration - - Weight 93.9 kg (207 lb) 11/29/2024 3:13 PM EST Height 170.2 cm (5' 7 ) 11/08/2024 12:44 PM EST Body Mass Index 32.42 11/08/2024 12:44 PM EST Plan of Treatment Health Maintenance Due Date Last Done Comments CT Colonography 1965 FIT DNA/Cologuard 1965 FIT 1965 FOBT 1965 HIV Screening 1965 Sigmoidoscopy 1965 Pneumococcal Vaccine: Pediatrics (0 to 5 Years) and At-Risk Patients (6 to 64 Years) (1 of 2 - PCV) 1971 Diabetes: Foot Exam 1975 Eye Exam 1975 Hepatitis B Vaccines (1 of 3 - 19+ 3-dose series) 1984 Dental Prophylaxis 01/13/2013 07/15/2012, 0 02/18/2010, 03/16/2009 Zoster Vaccines (1 of 2) 2015 Dental Oral Exam 05/14/2018 11/13/2017, , 05/02/2010 Dental X-Ray: Full Mouth 11/14/2020 11/13/2017, 12/2015 Diabetes: Urine Protein Screening 12/31/2022 12/31/2021 Dental X-Ray: Bitewings 07/07/2024 07/06/20 23, 11/13/2017, 07/07/2011, Additional history exists COVID-19 Vaccine ( season) 2024 05/02/2022, 10/08/2021, 02/16/2021 DTaP/Tdap/Td Vaccines (2 - Td or Tdap) 02/22/2025 02/22/2015 Diabetes: Hemoglobin A1C 03/22/2025 024, 05/17/2024, 02/16/2024, Additional history exists Lipid Panel 05/09/2025 05/09/2024, 08/0 05/2023, 07/28/2022, Additional history exists Depression Screening 05/17/2025 05/17/2024, 05/17/20 24 SDOH Screening 05/17/2025 05/17/2024 Alcohol/Substance Use Screening 09/22/2025 09/22/2024 Tobacco Screening 11/08/2025 11/08/2024 Colonoscopy 03/24/2028 03/24/2018 Colorectal Cancer Screening 03/24/2028 RSV Patients and Patients Aged 60 years or older (1 - 1-dose 75+ series) 2040 Hepatitis C Screening Completed 03/11/2022 Influenza Vaccine Completed 09/22/2024, , 08/19/2021, Additional history exists HIB Vaccines Aged Out No longer eligi ble based on patient's age to complete this topic HPV Vaccines Aged Out No longer eligi ble based on patient's age to complete this topic Hepatitis A Vaccines Aged Out No long er eligible based on patient's age to complete this topic IPV Vaccines Aged Out No longer eligi ble based on patient's age to complete this topic Meningococcal Vaccine Aged Out No florentino siomara eligible based on patient's age to complete this topic RSV under 20 months Aged Out No longe r eligible based on patient's age to complete this topic Rotavirus Vaccines Aged Out No longer eligible based on patient's age to complete this topic Procedures Procedure Name Priority Date/Time Associated Diagnosis Comments POCT GLUCOSE Routine 11/08/2024 12:52 PM EST Type 2 diabetes mellitus without complication, without long-term current use of insulin (CMS/HCC) POCT GLYCATED HEMOGLOBIN, TOTAL Routine 09/22/2024 3:29 PM EST Type 2 diabetes mellitus without complication, without long-term current use of insulin (CMS/HCC) POCT GLUCOSE Routine 09/22/2024 3:04 PM EST Type 2 diabetes mellitus without complication, without long-term current use of insulin (CMS/HCC) LIPID PANEL WITH REFLEX TO DIRECT LDL Routine 05/09/2024 8:32 AM EDT Type 2 diabetes mellitus without complication, without long-term current use of insulin (CMS/HCC) BITEWING - SINGLE RADIOGRAPHIC IMAGE Routine 07/06/2023 3:00 PM EDT Fractured dental advent with loss of material ZZZ HISTORICAL HEPATITIS C AB W/REFL TO HCV RNA, QN, PCR Routine 03/11/2022 3:23 PM EDT ALBUMIN, RANDOM URINE W/CREATININE Routine 12/31/2021 8:25 AM EST HM COLONOSCOPY Routine 03/24/2018 DIAGNOSTIC - DIAGNOSTIC IMAGING - INTRAORAL - COMPREHENSIVE SERIES OF RADIOGRAPHIC IMAGES Routine 11/13/2017 12:00 AM EST COMPREHENSIVE ORAL EVALUATION - NEW OR ESTABLISHED PATIENT Routine 11/13/2017 12:00 AM EST PROPHYLAXIS - ADULT Routine 07/15/2012 1 2:00 AM EDT from Last 3 Months or Most Recently Relevant to Health Maintenance Results * POCT Glucose (11/08/2024 12:52 PM EST) Only the most recent of2 resultswithin the time period is included. Glucose Blood, POC 111 60 - 200 mg/dL QC Media Lot # [id number] Lot# Expiration Date [id number] Blood Capillary blood specimen / Unknown 11/08/2024 12:52 PM EST us Domingo Freed MD POINT OF CARE TEST EN TER/EDIT ORDERABLES Final Result * (ABNORMAL) POCT HGB A1C (09/22/2024 3:29 PM EST) Hemoglobin A1C 6.2(A) 4.0 - 6.0 % QC Media Lot # [id number] Lot# Expiration Date [id number] Blood 09/22/2024 3:29 PM EST us Domingo Freed MD POINT OF CARE TEST EN TER/EDIT ORDERABLES Final Result * (ABNORMAL) Lipid Panel with Reflex to Direct LDL (05/09/2024 8:32 AM EDT) Triglycerides 128 <150 mg/dL [facility] Comment:Desirable Triglyceri de: less than 150 mg/dLBorderline High Triglyceride 150-199 mg/dLHigh Triglyceride: 200-499 mg/dLVery High Triglyceride: greater than or equal to 5OO mg/dL Cholesterol 196 <200 mg/dL [facility] Comment:Desirable Cholestero l: less than 200 mg/dLBorderline High Cholesterol: 200-239 mg/dLHigh Cholesterol: greater than 239 mg/dL LDL Cholesterol Calculated 131(H) <100 mg/dL [facility] Comment:Desirable LDL: less than 100 mg/dLNear Optimal/Above Optimal LDL: 110- 129 mg/dLBorderline High LDL: 130-159 mg/dLHigh LDL: 160-189 mg/dLVery High LDL: greater than or equal to 190 mg/dL HDL Cholesterol 40(L) >40 mg/dL [facility] Comment:Desirable HDL: great er than 40 mg/dL Note: This HDL assay may give artificially low results in patients with liver disease. Blood 05/09/2024 8:32 AM EDT 05/09/2024 11:39 AM EDT Domingo Freed MD LAB BLOOD ORDERABLES Final Result Performing Organization Address City/[facility]/ZIP Co de Phone Number [facility] [address] [place] [address] [phone] * HEPATITIS C AB W/REFL TO HCV RNA, QN, PCR (03/11/2022 3:23 PM EDT) HEPATITIS C ANTIBODY NON-REACT JERMAIN NON-REACT JERMAIN [facility] INDEX 0.06 <1.00 [facility] Comment: ?? HCV antibody was non-reactive. There is no laboratory ?? evidence of HCV infection. ?? In most cases, no further action is required. However, if recent HCV exposure is suspected, a test for HCV RNA (test code 29666) is suggested. ?? For additional information please refer to http://education.Aerospike/faq/PMY94v0 (This link is being provided for informational/ educational purposes only.) ?? 03/11/2022 3:23 PM EDT Domingo Freed MD HISTORICAL/NON ORDERA BLE LABS Final Result Performing Organization Address City/[facility]/ZIP Co de Phone Number [facility] [address] * ALBUMIN, RANDOM URINE W/CREATININE (12/31/2021 8:25 AM EST) Microalbumin Urine 0.2 See Note: mg/dL [facility] Comment: Reference Range: ?? Reference Range Not established Microalb/Creat Ratio 1 <30 mcg/mg creat [facility] Comment: ?? The ADA defines abnormalities in albumin excretion as follows: ?? Albuminuria Category ?Result (mcg/mg creatinine) ?? Normal to Mildly increased ?? <30 Moderately increased ? 30-299 ?? Severely increased ? > OR = 300 ?? The ADA recommends that at least two of three specimens collected within a 3-6 month period be abnormal before considering a patient to be within a diagnostic category. Creatinine, Urine 139 20 - 320 mg/dL [facility] 12/31/2021 8:25 AM EST Domingo Freed MD LAB URINE ORDERABLES Final Result [facility] [address] [place] [address], * Colonoscopy (03/24/2018) Colonoscopy Normal Normal 03/24/2018 Narrative Janie Pisano - 03/24/2018 1:10 PM EDT Recommended 10 year follow up ( see scanned notes ) Historical Provider HEALTH MAINTENANCE Final Result from Last 3 Months or Most Recently Relevant to Health Maintenance Insurance [facility] NAVIGATE [facility] [employer] [place] * Guarantor: Matthew Gong Account Type Relation to Patient Date of Phone Billing Address Personal/[place] [address] * Guarantor: Matthew Gong Account Type Relation to Patient Date of Phone Billing Address Personal/[place] [address] * Guarantor: Matthew Gong Account Type Relation to Patient Date of Phone Billing Address Personal/[place] [address] Care Teams Salesperson Sewing Machines Relationship Specialty Start Date End Date Domingo Baker MD [address] [place] [phone] PCP - General Internal Medicine 10/11/14
--- OUTSIDE RECORDS SUMMARY | 2024-12-02 16:31 | XMS_ITS | Encounter Summary ---
Author Organization [employer] Address [address] [facility] 7[address] [place] [address] Care Team Providers Care Services Mgr Name Role Phone Domingo Baker MD Primary Care Provide r Reason for Visit * Reason Onset Date Comments January Recall 11/23/2024 Encounter Details Date Type Department Care Team ([facility] st Contact Info) Description 11/23/2024 Telephone [facility] [address] [place], [place] [phone] Domingo Baker MD [address] [place], [place] [phone] January Recall Social History Tobacco Use Types Packs/Day Years [...] your housing situation today? 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 Recall letter sent. Appointment: Office Visit Note: DM; High Lipids Month: January With: Satnam Please schedule appointment if Patient calls Back. documented in this encounter Plan of Treatment Not on file documented as of this encounter Visit Diagnoses Not on filedocumented in this encounter Additional Health Concerns Assessment Noted Time PHQ-9 Depression Total Score: 0 05/17/20 24 3:11 PM EDT documented as of this encounter Care Teams Services Mgr Relationship Specialty Start Date End Date Domingo Baker MD [address] [place] [phone] PCP - General Internal Medicine 10/11/14 documented as of this encounter
--- OUTSIDE RECORDS SUMMARY | 2024-12-02 16:32 | XMS_ITS | Encounter Summary ---
Author Organization [employer] Address [address] [facility] 7[address] [place] [address] Care Team Providers Care Telecom Sales Consultant Name Role Phone Domingo Baker MD Primary Care Provide r Encounter Details Date Type Department Care Team (Late st Contact Info) Description 12/15/2022 Orders Only [facility] [address] [place], [place] [phone] Alivia Martell LPN Social History Tobacco Use Types Packs/Day [...] on filedocumented in this encounter Care Teams Telecom Sales Consultant Relationship Specialty Start Date End Date Domingo Baker MD [address] [place] [address] PCP - General Internal Medicine 10/11/14 documented as of this encounter
[2024-12-02] MEDS: gadobutroL 10 ML VIAL IVPUSH (16:38)
== END 2024-12-02 15:30 | disposition home or self-care (01) ==
LOC: HO.MRI 15:29
PROVIDERS: PCP Internal Medicine; Visit Provider Internal Medicine
DX: R22.31 Localized swelling, mass and lump, right upper limb (principal)
CPT/HCPCS: 73220; A9585

== ENCOUNTER → 2024-12-02 15:58 | Outpatient (BNV) | payer OTHER, SELFPAY | PROVIDERS: PCP Internal Medicine; Visit Provider Radiology Diagnostic Radiology | DX: R22.32 Localized swelling, mass and lump, left upper limb (principal) | CPT/HCPCS: 73220 ==

== ENCOUNTER 2024-12-22 09:53 | Outpatient (AMB) | payer OTHER, SELFPAY ==
--- NOTE | 2024-12-22 10:02 | A.OFFVIS_ITS ---
Vital Signs 12/22/24 10:09 Height 5 ft 5 in Weight 200 lb BMI 33.3 BP 119/74 Blood Pressure Location Rt brachial Position Sitting Pulse 80 Intake Visit Reasons: Right arm mass Intake Note: This patient presents for Right arm mass. Pt c/o; right arm mass, no pain. Imagin12/02/2024: Forearm MRI Health Careers Instructor Required: Yes Health Careers Instructor Language: Landscaping And Groundskeeping Laborer Services: Health Careers Instructor Present ([place]acinth) Information Interpreted: non-clinical & clinical Accompanied by: Self / Same As Patient Allergies Penicillins [PENICILLINS] Allergy (Unknown, Verified 12/22/24 10:10) PASS OUT Medication List - Last Reconciled 12/22/24 by Frank Ornelas MD aspirin 81 mg PO QAM hydrocortisone 1% 1 appl topical BID PRN lisinopril 20 mg PO DAILY metformin 500 mg PO QPM rosuvastatin 40 mg PO DAILY HPI HPI Right arm mass: Details: [age] year old male referred for right arm mass. He says that he has had this for about 5 years. He states that this has been increasing in size. He denies any pain or discomfort. He denies any limitation of the range of motion at the elbow. He says that he has good health overall. [facility] Medical History (Updated 12/22/24 @ 10:27 by Frank Ornelas MD) Lipoma of arm Surgical History No pertinent past surgical history Social History Alcohol intake: unknown Patient Tobacco Use Status: Tobacco use Unknown Review of Systems Const Denies chills and Denies fever(s) Card Denies chest pain, Denies dyspnea and Denies dyspnea on exertion Resp Denies cough, Denies dyspnea and Denies dyspnea on exertion GI Denies hematochezia and Denies change in bowel habits Denies hematuria and Denies difficulty urinating Musc Denies back pain and Denies limited range of motion Neuro Denies focal weakness and Denies convulsions Psych Denies depression and Denies mood swings Physical Exam Vital Signs: Last Vital Signs Pulse 80 12/22/24 10:09 BP 119/74 12/22/24 10:09 BMI result Body Mass Index 33.3 Const General: comfortable and no acute distress Orientation/consciousness: patient oriented x3 Neck Neck: Yes no lymphadenopathy Resp Auscultation: clear to auscultation bilaterally Cardio Rhythm: regular rhythm GI Palpation (GI): Soft to palpation, nontender and no guarding Neuro General: patient oriented x3 Extrem Other: Lipomatous mass on the right forearm about a cm in diameter near the elbow Assessment & Plan Assessment & Plan (1) Lipoma of arm: Code(s): D17.20 - Benign lipomatous neoplasm of skin and subcutaneous tissue of unspecified limb Category: Medical Plan: He has this mass on the right forearm near the elbow as described above. This seems to be a lipoma on examination. He did have an MRI showing a lipomatous mass about 8 cm in widest dimension in the brachioradialis Therefore explained to him the technique of excision which would be under anesthesia. I reviewed the risks including but not limited to bleeding, infections, muscle injury, postop pain, as well as the benefits and alternatives. I also explained to him what to expect postoperatively He says he will discuss this with his work and we will call the office when he decides to proceed. Coding Level of Care Code New Pt Level 3 (69314) Diagnoses Lipoma of arm D17.20
[2024-12-22 10:09] VITALS: BP 119/74; PULSE 80; BMI 33.3
--- OUTSIDE RECORDS SUMMARY | 2024-12-22 10:29 | XMS_ITS | Encounter Summary ---
Author Organization [employer] Address [address] [facility] 7t [place] [address] Care Team Providers Care Criminal Justice Department Chair Name Role Phone Domingo Baker MD Primary Care Provide r Encounter Details Date Type Department Care Team (Late st Contact Info) Description 03/13/2023 Abstract [facility] [address] [place], [place] [phone] Domingo Baker MD [address] [place], [place] [phone] Social History Tobacco Use Types Packs/Day Years [...] documented as of this encounter Care Teams Criminal Justice Department Chair Relationship Specialty Start Date End Date Domingo Baker MD [address] [place] [address] PCP - General Internal Medicine 10/11/14 documented as of this encounter
--- OUTSIDE RECORDS SUMMARY | 2024-12-22 10:29 | XMS_ITS | Clinical Summary ---
Author Organization [employer] Address [address] [facility] 7t [place] [address] Care Team Providers Care Master Ship Name Role Phone Domingo Baker MD Primary [...] & Plan (11/29/2024 3:27 PM EST): Called [facility] and as recommended, advised [...] Encounters Date Type Department Care Team Description 12/08/2024 Orders Only [facility] [place] [address] Domingo Baker MD Localized swelling, mass and lump, right upper limb (Primary Dx) 12/07/2024 Telephone [facility] [place] [address] Sumaya Galvan, RN Results 11/30/2024 Refill [facility] [place] [place] [address] Domingo Baker MD 11/29/2024 5:40 PM EST Office Visit [facility] [address] Alona Rincon MD Conjunctival hemorrhage of left eye (Primary Dx) 11/23/[address] [address] Domingo Baker MD March Recall 11/22/2024 Orders Only [facility] [address] [place] [address] Domingo Baker MD Localized swelling, mass and lump, right upper limb (Primary Dx) 11/22/2024 Telephone [facility] [address] [place], [place] [address] [address] Domingo Baker MD MRI LOWER ARM ORDER 11/10/[address] [address] Hedy Sepulveda, rn outpatient surgery Orders 11/10/[address] [address] Domingo Baker MD 11/08/2024 12:30 PM EST Office Visit [facility] [place] [address] Domingo Baker MD Umbilical hernia without obstruction and without gangrene (Primary Dx); Melanonychia; Type 2 diabetes mellitus without complication, without long-term current use of insulin ([facility]) 11/08/2024 Travel 10/26/2024 Telephone [facility] [address] [place] [address] Domingo Baker MD MRI UPPER, LOWER ARM ORDERS 10/26/2024 Telephone [facility] [address] [place] [address] Domingo Baker MD Chart Prep 09/22/2024 3:00 PM EST Office Visit [facility] [address] [place] [address] Domingo Baker MD Localized swelling, mass and lump, right upper limb (Primary Dx); Type 2 diabetes mellitus without complication, without long-term current use of insulin ([facility]); Mixed hyperlipidemia; Encounter for immunization 09/22/2024 Travel from Last 3 Months Immunizations Name Administration [...] FOBT 1965 HIV Screening 1965 Sigmoidoscopy 1965 Diabetes: Foot Exam 1975 Eye Exam 1975 Hepatitis B Vaccines (1 of 3 - 19+ 3-dose series) 1984 Pneumococcal Vaccine: 50+ Years (1 of 2 - PCV) 1984 Dental Prophylaxis 01/13/2013 07/15/2012, 0 02/18/2010, [...] Additional history exists Lipid Panel 05/09/2025 05/09/2024, 0805/2023, 07/28/2022, Additional history exists Depression Screening 05/17/2025 [...] Procedure Name Priority Date/Time Associated Diagnosis Comments MR FOREARM W AND WO CONTRAST RIGHT Routine 12/02/2024 3:58 PM EST POCT GLUCOSE Routine 11/08/2024 12:52 PM EST [...] Routine 07/06/2023 3:00 PM EDT Fractured dental hindu with loss of material ZZZ HISTORICAL HEPATITIS C AB W/REFL TO HCV RNA, QN, PCR Routine 03/11/2022 3:23 PM EDT ALBUMIN, RANDOM URINE W/CREATININE Routine 12/31/2021 8:25 AM EST HM COLONOSCOPY Routine 03/24/2018 INTRAORAL - COMPLETE SERIES OF RADIOGRAPHIC IMAGES Routine 11/13/2017 12:00 AM EST COMPREHENSIVE ORAL EVALUATION - NEW OR ESTABLISHED PATIENT Routine 11/13/2017 12:00 AM EST PROPHYLAXIS - ADULT Routine 07/15/2012 1 2:00 AM EDT from Last 3 Months or Most Recently Relevant to Health Maintenance Results * MR Sharif w and w/o Contrast Right (12/02/2024 3:58 PM EST) Anatomical Region Laterality Modality Magnetic Resonan ce 12/02/2024 3:58 PM EST Narrative 12/05/2024 2:21 PM EST ? [facility] ?[address] ?[place] [address] ? Magnetic Resonance Report ? Signed ? Patient: Skelton,Matthew ?MR#: [id number] ? : 1965 ?Acct:[id number] ? Age/Sex: 58 / M ?ADM Date: 12/02/24 ? Loc: HO.MRI ? Attending Dr: Domingo Degroot MD ? Ordering Physician: Domingo Degroot MD ?? Date of Service: 12/02/24 ?? Procedure(s): MR forearm RT wo/w con ?? Accession Number(s): [id number] ? cc: Domingo Degroot MD ? EXAMINATION: MR FOREARM WITHOUT THEN WITH IV CONTRAST RIGHT ? HISTORY: RIGHT ARM MASS. ? TECHNIQUE: ??Coronal and sagittal T1 and STIR, and axial T1 and ?? fat-suppressed T2-weighted MR images of the right forearm were ?? obtained. Subsequently, axial and coronal fat suppressed T1-weighted ?? images were obtained after the intravenous administration of 10 mm ?? Gadavist. ? COMPARISON: There are no prior studies for comparison. ? FINDINGS: ? There is an ovoid 8.0 x 4.8 x 1.5 cm mass of the brachioradialis muscle ?? which demonstrates fat signal intensity on all sequences and loses ?? signal with fat suppression. A few tiny septations are noted within the ?? mass as well as small vessels. There is no enhancing soft tissue ?? component. Findings are consistent with a lipoma. The remaining ?? visualized muscles demonstrate normal signal intensity. Bone marrow ?? signal intensity is normal. There is no elbow joint effusion. ? MR/MR forearm RT wo/w con ?? IMPRESSION: ? Findings compatible with an 8.0 x 4.8 x 1.5 cm lipoma of the ?? brachioradialis muscle. ? Electronically signed by: ??Mars Eaton MD ??12/05/2024 02:18 PM EST ? Dictated By: ?Mars Eaton MD ? Signed By: ?<Electronically signed by Mars Eaton MD in OV> ?12/05/ 1418 ? DD/ 1558 ? TD/TT: 12/02/24 1634 ? Letterer: ? Procedure Note Donmaximointerpreter, Image - 12/05/2024 [place] [address] Magnetic Resonance Report Signed Patient: Alexandr Skelton#: [id number] : 1965Acct:[id number] Age/Sex: 58 / MADM Date: 12/02/24 Loc: HO.MRI Attending Dr: Domingo Degroot MD Ordering Physician: Domingo Dergoot MD Date of Service: 12/02/24 Procedure(s): MR forearm RT wo/w con Accession Number(s): [id number] cc: Domingo Degroot MD EXAMINATION: MR FOREARM WITHOUT THEN WITH IV CONTRAST RIGHT HISTORY: RIGHT ARM MASS. TECHNIQUE: Coronal and sagittal T1 and STIR, and axial T1 and fat-suppressed T2-weighted MR images of the right forearm were obtained. Subsequently, axial and coronal fat suppressed T1-weighted images were obtained after the intravenous administration of 10 mm Gadavist. COMPARISON: There are no prior studies for comparison. FINDINGS: There is an ovoid 8.0 x 4.8 x 1.5 cm mass of the brachioradialis muscle which demonstrates fat signal intensity on all sequences and loses signal with fat suppression. A few tiny septations are noted within the mass as well as small vessels. There is no enhancing soft tissue component. Findings are consistent with a lipoma. The remaining visualized muscles demonstrate normal signal intensity. Bone marrow signal intensity is normal. There is no elbow joint effusion. 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 Electronically signed by: Mars Eaton MD 12/05/2024 02:18 PM EST RP Dictated By: Mars Eaton MD Signed By: <Electronically signed by Mars Eaton MD in OV> 12/05/24 1418 DD/ 1558 TD/TT: 12/02/24 1634 Letterer: Domingo Freed MD IMG MRI PROCEDURES Fi nal Result * POCT Glucose (11/08/2024 12:52 PM EST) Only the most recent of2 resultswithin the time period is included. Glucose Blood, POC 111 60 - 200 mg/dL QC Media Lot # [id number] Lot# Expiration Date 983 Blood Capillary blood specimen / Unknown 11/08/2024 12:52 PM EST Domingo Freed MD POINT OF CARE TEST EN TER/EDIT ORDERABLES Final Result * (ABNORMAL) POCT HGB A1C (09/22/2024 3:29 PM EST) Hemoglobin A1C 6.2(A) 4.0 - 6.0 % QC Media Lot # [id number] Lot# Expiration Date [id number] Blood 09/22/2024 3:29 PM EST us Domingo Freed MD POINT OF CARE TEST EN TER/EDIT ORDERABLES Final Result * (ABNORMAL) Lipid Panel with Reflex to Direct LDL (05/09/2024 8:32 AM EDT) Triglycerides 128 <150 mg/dL [facility] Comment:Desirable Triglyceri de: less than 150 mg/dLBorderline High Triglyceride 150-199 mg/dLHigh Triglyceride: 200-499 mg/dLVery High Triglyceride: greater than or equal to 5OO mg/dL Cholesterol 196 <200 mg/dL [facility] Comment:Desirable Cholestero l: less than 200 mg/dLBorderline High Cholesterol: 200-239 mg/dLHigh Cholesterol: greater than 239 mg/dL LDL Cholesterol Calculated 131(H) <100 mg/dL [facility] Comment:Desirable LDL: less than 100 mg/dLNear Optimal/Above Optimal LDL: 110- 129 mg/dLBorderline High LDL: 130-159 mg/dLHigh LDL: 160-189 mg/dLVery High LDL: greater than or equal to 190 mg/dL HDL Cholesterol 40(L) >40 mg/dL [facility] Comment:Desirable HDL: great er than 40 mg/dL Note: This HDL assay may give artificially low results in patients with liver disease. Blood 05/09/2024 8:32 AM EDT 05/09/2024 11:39 AM EDT us Domingo Freed MD LAB BLOOD ORDERABLES Final Result [facility] [address] [place] [phone] * HEPATITIS C AB W/REFL TO HCV RNA, QN, PCR (03/11/2022 3:23 PM EDT) HEPATITIS C ANTIBODY NON-REACT [facility] NON-REACT [facility] INDEX 0.06 <1.00 [facility] Comment: ?? HCV antibody was non-reactive. There is no laboratory ?? evidence of HCV infection. ?? In most cases, no further action is required. However, if recent HCV exposure is suspected, a test for HCV RNA (test code 97458) is suggested. ?? For additional information please refer to http://education.[employer]/faq/VMC74d8 (This link is being provided for informational/ educational purposes only.) ?? 03/11/2022 3:23 PM EDT Domingo Freed MD HISTORICAL/NON ORDERA BLE LABS Final Result Performing Organization Address [facility] de Phone Number [facility] [address] * ALBUMIN, RANDOM URINE W/CREATININE (12/31/2021 [...] Creatinine, Urine 139 20 - 320 mg/dL [facility] 12/31/2021 8:25 AM EST Domingo Freed MD LAB URINE ORDERABLES Final Result Performing Organization Address [facility] Phone Number [facility] [address] [place] [address], * Hm Colonoscopy (03/24/2018) Colonoscopy Normal Normal 03/24/2018 Narrative Janie Pisano - 03/24/2018 1:10 PM EDT Recommended 10 year follow up ( see scanned notes ) Historical Provider HEALTH MAINTENANCE Final Result from Last 3 Months or Most Recently Relevant to Health Maintenance Insurance [facility] NAVIGATE [facility] NAVIGATE [facility] [place] [address] [facility] * Guarantor: Matthew Gong Account Type Relation to Patient Date of Phone Billing Address Personal/Family [place] [facility] [place] [address] Care Teams Master Ship Relationship Specialty Start Date End Date Domingo Baker MD [address] [place] [address] PCP - General Internal Medicine 10/11/14
--- OUTSIDE RECORDS SUMMARY | 2024-12-22 10:29 | XMS_ITS | Encounter Summary ---
Author Organization [employer] Address [address] [facility] 7t [place] [address] Care Team Providers Care Flight Operations Engineer Name Role Phone Domingo Baker MD Primary Care Provide r Reason for Visit * Reason Comments Med Refill Encounter Details Date Type Department Care Team ([facility] st Contact Info) Description 02/23/2023 Refill [facility] [address] [place], [place] [phone] Domingo Baker MD [address] [place], [place] [phone] Primary hypertension Social History Tobacco Use Types [...] documented as of this encounter Care Teams Flight Operations Engineer Relationship Specialty Start Date End Date Domingo Baker MD [address] [place] [address] PCP - General Internal Medicine 10/11/14 documented as of this encounter
--- OUTSIDE RECORDS SUMMARY | 2024-12-22 10:29 | XMS_ITS | Encounter Summary ---
Author Organization [employer] Address [address] [facility] 7t [place] [address] Care Team Providers Care Astro Technician Name Role Phone Domingo Baker MD Primary Care Provide r Encounter Details Date Type Department Care Team (Late st Contact Info) Description 12/15/2022 Orders Only [facility] [address] [place], [place] [phone] Alivia Martell LPN Social History Tobacco Use [...] on filedocumented in this encounter Care Teams Astro Technician Relationship Specialty Start Date End Date Domingo Baker MD [address] [place] [address] PCP - General Internal Medicine 10/11/14 documented as of this encounter
--- OUTSIDE RECORDS SUMMARY | 2024-12-22 10:29 | XMS_ITS | Encounter Summary ---
Author Organization [employer] Address [address] [facility] [address] 7t [place] [address] Care Team Providers Care Language Teacher Name Role Phone Domingo Baker MD Primary Care Provide r Reason for Visit * Reason Comments Eye Problem Encounter Details Date Type Department Care Team ([facility] st Contact Info) Description 11/29/2024 5:40 PM EST Office Visit [facility] [address] [place] [phone] Alona Rincon MD [address] [place] [address] Conjunctival hemorrhage of left eye (Primary Dx) [...] hemorrhage of left eye - Primary Called [facility] and as recommended, advised pt [...] Problem(s): Conjunctival hemorrhage of left eye Called [facility] and as recommended, advised pt [...] documented as of this encounter Care Teams Language Teacher Relationship Specialty Start Date End Date Domingo Baker MD [address] [place] [address] PCP - General Internal Medicine 10/11/14 documented as of this encounter
--- OUTSIDE RECORDS SUMMARY | 2024-12-22 10:29 | XMS_ITS | Encounter Summary ---
Author Organization [employer] Address [address] [facility] 7t [place] [address] Care Team Providers Care Fluid Dynamicist Name Role Phone Domingo Baker MD Primary Care Provide r Reason for Referral * Consultation (Routine) - Authorized Specialty Diagnoses / Procedures Referred By Contac t Referred To Contact General Surgery Diagnoses Localized swelling, mass and lump, right upper limb Domingo Baker MD [address] [place] [address] Phone: tel: fax: Frank Ornelas MD [address] [place] [address] Drive 3rd [place] [address] Phone: tel: Referral ID Status Reason Start Date Expiration Date Visits Requested Visits Authorized [id number] Authorized Specialty Services Required 12/08/2024 12/08/2025 1 1 Encounter Details Date Type Department Care Team (Late st Contact Info) Description 12/08/2024 Orders Only [facility] [address] [place] [address] Domingo Baker MD [address] [place], [place] [phone] Localized swelling, mass and lump, right upper [...] of this encounter Plan of Treatment Scheduled Referrals Name Type Priority Associated Diagnoses Orde r Schedule Referral to General Surgery Outpatient Referral Routine Localized swelling, mass and lump, right upper limb Expected: 12/08/2024 (Approximate), Expires: 12/08/2025 documented as of this encounter Visit Diagnoses Diagnosis Localized swelling, mass and lump, right upper limb- Primary documented in this encounter Additional Health Concerns Assessment Noted Time PHQ-9 Depression Total Score: 0 05/17/20 24 3:11 PM EDT documented as of this encounter Care Teams Fluid Dynamicist Relationship Specialty Start Date End Date Domingo Baker MD [address] [place] [address] PCP - General Internal Medicine 10/11/14 documented as of this encounter
--- OUTSIDE RECORDS SUMMARY | 2024-12-22 10:29 | XMS_ITS | Encounter Summary ---
Author Organization [employer] Address [address] [facility] 7t [place] [address] Care Team Providers Care Seaweed Harvester Name Role Phone Domingo Baker MD Primary Care Provide r Reason for Visit * Reason Comments Med Refill Encounter Details Date Type Department Care Team ([facility] st Contact Info) Description 08/05/2023 Refill [facility] [address] [place], [place] [phone] Domingo Baker MD [address] [place], [place] [phone] Social History Tobacco Use Types Packs/Day Years [...] documented as of this encounter Care Teams Seaweed Harvester Relationship Specialty Start Date End Date Domingo Baker MD [address] [place] [address] PCP - General Internal Medicine 10/11/14 documented as of this encounter
--- OUTSIDE RECORDS SUMMARY | 2024-12-22 10:29 | XMS_ITS | Encounter Summary ---
Author Organization [employer] Address [address] [facility] 7t [place] [address] Care Team Providers Care Fiberglass Boat Parts Finisher Name Role Phone Domingo Baker MD Primary Care Provide r Reason for Visit * Reason Onset Date Comments Returning Call 02/09/2024 Encounter Details Date Type Department Care Team ([facility] st Contact Info) Description 02/09/2024 Telephone [facility] [address] [place], [place] [phone] Domingo Baker MD [address] [place], [place] [phone] Returning Call Social History Tobacco Use Types [...] Direct contactinformation provided. Please contact pt at [phone]. documented in this encounter Plan of Treatment Not on file documented as of this encounter Visit Diagnoses Not on filedocumented in this encounter Additional Health Concerns Assessment Noted Time PHQ-9 Depression Total Score: 0 02/18/20 23 2:28 PM EDT documented as of this encounter Care Teams Fiberglass Boat Parts Finisher Relationship Specialty Start Date End Date Domingo Baker MD [address] [place] [address] PCP - General Internal Medicine 10/11/14 documented as of this encounter
--- OUTSIDE RECORDS SUMMARY | 2024-12-22 10:29 | XMS_ITS | Encounter Summary ---
Author Organization [employer] Address [address] [facility] 7t [place] [address] Care Team Providers Care Business Excellence Leader Name Role Phone Domingo Baker MD Primary Care Provide r Encounter Details Date Type Department Care Team (Late st Contact Info) Description 12/25/2022 Orders Only [facility] [address] [place] [address] Krystin Reeder LPN Social History Tobacco Use [...] on filedocumented in this encounter Care Teams Business Excellence Leader Relationship Specialty Start Date End Date Domingo Baker MD [address] [place] [address] PCP - General Internal Medicine 10/11/14 documented as of this encounter
--- OUTSIDE RECORDS SUMMARY | 2024-12-22 10:29 | XMS_ITS | Encounter Summary ---
Author Organization [employer] Address [address] [facility] 7t [place] [address] Care Team Providers Care Community Service Technician Name Role Phone Domingo Baker MD Primary Care Provide r Encounter Details Date Type Department Care Team (Late st Contact Info) Description 07/29/2023 Orders Only [facility] MED & PEDS [address] [place] [address] Krystin Reeder LPN Social History Tobacco Use [...] documented as of this encounter Care Teams Community Service Technician Relationship Specialty Start Date End Date Domingo Baker MD [address] [place] [phone] PCP - General Internal Medicine 10/11/14 documented as of this encounter
--- OUTSIDE RECORDS SUMMARY | 2024-12-22 10:29 | XMS_ITS | Encounter Summary ---
Author Organization [employer] Address [address] [facility] 7t [place] [address] Care Team Providers Care Online Project Manager Name Role Phone Dominog Baker MD Primary Care Provide r Reason for Visit * Reason Comments Med Refill Encounter Details Date Type Department Care Team ([facility] st Contact Info) Description 11/30/2024 Refill [facility] MEDICINE [address] [place], [place] [phone] Domingo Baker MD [address] [place], [place] [phone] Social History Tobacco Use Types Packs/Day Years [...] documented as of this encounter Care Teams Online Project Manager Relationship Specialty Start Date End Date Domingo Baker MD [address] [place] [phone] PCP - General Internal Medicine 10/11/14 documented as of this encounter
--- OUTSIDE RECORDS SUMMARY | 2024-12-22 10:29 | XMS_ITS | Encounter Summary ---
Author Organization [employer] Address [address] [facility] 7t [place] [address] Care Team Providers Care Extension Service Specialist In Charge Name Role Phone Domingo Baker MD Primary Care Provide r Reason for Visit * Reason Onset Date Comments January Recall 11/23/2024 Encounter Details Date Type Department Care Team ([facility] st Contact Info) Description 11/23/2024 Telephone [facility] MEDICINE [address] [place], [place] [phone] Domingo Baker MD [address] [place], [place] [phone] January Recall Social History Tobacco Use Types [...] [place] - 11/23/2024 2:57 PM EST T/C- Work Force Advisor Left Voice Mail to return call to [...] documented as of this encounter Care Teams Extension Service Specialist In Charge Relationship Specialty Start Date End Date Domingo Baker MD [address] [place] [phone] PCP - General Internal Medicine 10/11/14 documented as of this encounter
--- OUTSIDE RECORDS SUMMARY | 2024-12-22 10:29 | XMS_ITS | Encounter Summary ---
Author Organization [employer] Address [address] [facility] 7t [place] [address] Care Team Providers Care Steel Construction Worker Name Role Phone Domingo Baker MD Primary Care Provide r Reason for Referral * Imaging (Routine) - Authorized Specialty Diagnoses / Procedures Referred By Contac t Referred To Contact Radiology Diagnoses Localized swelling, mass and lump, right upper limb Procedures MRI LOWER ARM / RADIUS ULNA RIGHT W WO CONTRAST Domingo Baker MD [address] [place] [address] Phone: tel: fax: [address] Phone: tel: fax: Referral ID Status Reason Start Date Expiration Date V isits Requested Visits Authorized [id number] Authorized 11/22/2024 11/22/2025 1 1 Encounter Details Date Type Department Care Team (Late st Contact Info) Description 11/22/2024 Orders Only [facility] MEDICINE [address] [place], [place] [phone] Domingo Baker MD [address] [place], [place] [phone] Localized swelling, mass and lump, right upper [...] as of this encounter Miscellaneous Notes * Result Encounter Note - Domingo Freed MD - 11/22/2024 3:38 PM EST Please contact patient to let him know his Right arm MRI showed a Lipoma. If she would like to haveit removed I could refer to general surgeon. Please let me know documented in this encounter Plan of Treatment Scheduled Orders Name Type Priority Associated Diagnoses Orde r Schedule MRI LOWER ARM / RADIUS ULNA RIGHT W WO CONTRAST Imaging Routine Localized swelling, mass and lump, right upper limb Expected: 11/22/2024, Expires: 11/22/2025 documented as of this encounter Procedures Procedure Name Priority Date/Time Associated Diagnosis Comments MR FOREARM W AND WO CONTRAST RIGHT Routine 12/02/2024 3:58 PM EST documented in this encounter Results * MR Forearm w and w/o Contrast Right (12/02/2024 3:58 PM EST) Anatomical Region Laterality Modality Magnetic Resonan ce 12/02/2024 3:58 PM EST Narrative 12/05/2024 2:21 PM EST ? [facility] ?[address] ?[place] [address] ? Magnetic Resonance Report ? Signed ? Patient: Matthew Skelton ?MR#: [id number] ? : 1965 ?Acct:[id number] ? Age/Sex: 58 / M ?ADM Date: 12/02/24 ? Loc: HO.MRI ? Attending Dr: Domingo Degroot MD ? Ordering Physician: Domingo Degroot MD ?? Date of Service: 12/02/24 ?? Procedure(s): MR forearm RT wo/w con ?? Accession Number(s): [id number] ? cc: Domingo Degroot MD ? EXAMINATION: [...] ??Mars Eaton MD ??12/05/2024 02:18 PM EST ?? RP ? Dictated By: ?Mars Eaton MD ? Signed By: ?<Electronically signed by Mars Eaton MD in OV> ?12/05/24 1418 ? DD/ 1558 ? TD/TT: 12/02/24 1634 ? Chief Green Officer: ? Procedure Note [place], Image - 12/05/2024 [place] [address] Magnetic Resonance Report Signed Patient: Alexandr Skelton#: [id number] : 1965Acct:[id number] Age/Sex: 58 / MADM Date: 12/02/24 Loc: HO.MRI Attending Dr: Domingo Degroot MD Ordering Physician: Domingo Degroot MD Date of Service: 12/02/24 Procedure(s): MR forearm RT wo/w con Accession Number(s): [id number] cc: Domingo Degroot MD EXAMINATION: MR FOREARM [...] by: Mars Eaton MD 12/05/2024 02:18 PM [facility] Dictated By: Mars Eaton MD Signed By: <Electronically signed by Mars Eaton MD in OV> 12/05/24 1418 DD/ 1558 TD/TT: 12/02/24 1634 Chief Green Officer: Domingo Freed MD IMG MRI PROCEDURES Fi nal Result documented in this encounter Visit Diagnoses Diagnosis Localized swelling, mass and lump, right upper limb- Primary documented in this encounter Additional Health Concerns Assessment Noted Time PHQ-9 Depression Total Score: 0 05/17/20 24 3:11 PM EDT documented as of this encounter Care Teams Steel Construction Worker Relationship Specialty Start Date End Date Domingo Baker MD [address] [place] [id number] PCP - General Internal Medicine 10/11/14 documented as of this encounter
--- OUTSIDE RECORDS SUMMARY | 2024-12-22 10:29 | XMS_ITS | Encounter Summary ---
Author Organization [employer] Address [address] [facility] 7t [place] [address] Care Team Providers Care Poultry Hanger Name Role Phone Domingo Baker MD Primary Care Provide r Reason for Visit * Reason Comments Med Refill Encounter Details Date Type Department Care Team ([facility] st Contact Info) Description 08/28/2023 Refill [facility] MEDICINE [address] [place], [place] [phone] Domingo Baker MD [address] [place], [place] [phone] Low vitamin D level Social History Tobacco [...] documented as of this encounter Care Teams Poultry Hanger Relationship Specialty Start Date End Date Domingo Baker MD [address] [place] [id number] PCP - General Internal Medicine 10/11/14 documented as of this encounter
--- OUTSIDE RECORDS SUMMARY | 2024-12-22 10:29 | XMS_ITS | Encounter Summary ---
Author Organization [employer] Address [address] [facility] 7t [place] [address] Care Team Providers Care Software Developer Consultant Name Role Phone Domingo Baker MD Primary Care Provide r Reason for Visit * Reason Onset Date Comments Results 12/07/2024 Encounter Details Date Type Department Care Team ([facility] st Contact Info) Description 12/07/2024 Telephone [facility] MEDICINE [address] [place] [address] Sumaya Galvan RN Results Social History Tobacco Use Types Packs/Day Years [...] encounter Miscellaneous Notes * Telephone Encounter - Sumaya Galvan RN - 12/07/2024 3:38 PM EST TC placed to pt with BLS store management trainee Isabela #[id number] to inform of most recent right arm MRI results below. Pt advised of the findings showing a Lipoma and that if agreeable can be removed through surgery. Pt stated that this is a course of action he would like to take and would like the referral to general surgery placed. ----- Message from Domingo Freed MD sent at 12/07/2024 2:59 PM EST ----- Please contact patient to let him know [...] documented as of this encounter Care Teams Software Developer Consultant Relationship Specialty Start Date End Date Domingo Baker MD [address] [place] [phone] PCP - General Internal Medicine 10/11/14 documented as of this encounter
--- OUTSIDE RECORDS SUMMARY | 2024-12-22 10:29 | XMS_ITS | Encounter Summary ---
Author Organization [employer] Address [address] [facility] 7t [place] [address] Care Team Providers Care Wrapper Hand Name Role Phone Domingo Baker MD Primary Care Provide r Reason for Visit * Reason Onset Date Comments MRI LOWER ARM ORDER 11/22/2024 Encounter Details Date Type Department Care Team ([facility] st Contact Info) Description 11/22/2024 Telephone [facility] [address] [place], [place] [phone] Domingo Baker MD [address] [place] [address] MRI LOWER ARM ORDER Social History Tobacco [...] documented as of this encounter Care Teams Wrapper Hand Relationship Specialty Start Date End Date Domingo Baker MD [address] [place] [address] PCP - General Internal Medicine 10/11/14 documented as of this encounter
--- OUTSIDE RECORDS SUMMARY | 2024-12-22 10:29 | XMS_ITS | Encounter Summary ---
Author Organization [employer] Address [address] [facility] 7t [place] [address] Care Team Providers Care Marriage And Family Counselor Name Role Phone Domingo Baker MD Primary Care Provide r Encounter Details Date Type Department Care Team (Late st Contact Info) Description 03/30/2023 Orders Only [facility] CH[facility] MED & PEDS [address] [place] [address] Krystin Reeder LPN Social History Tobacco Use [...] documented as of this encounter Care Teams Marriage And Family Counselor Relationship Specialty Start Date End Date Domingo Baker MD [address] [place] [address] PCP - General Internal Medicine 10/11/14 documented as of this encounter
--- OUTSIDE RECORDS SUMMARY | 2024-12-22 10:29 | XMS_ITS | Encounter Summary ---
Author Organization [employer] Address [address] [facility] [address]t [place] [address] Care Team Providers Care Development Director Name Role Phone Domingo Baker MD Primary Care Provide r Reason for Visit * Reason Comments Med Refill Encounter Details Date Type Department Care Team ([facility] st Contact Info) Description 03/08/2024 Refill [facility] MEDICINE [address] [place], [place] [phone] Domingo Baker MD [address] [place], [place] [phone] Primary hypertension Social History Tobacco Use Types [...] documented as of this encounter Care Teams Development Director Relationship Specialty Start Date End Date Doimngo Baker MD [address] [place] [phone] PCP - General Internal Medicine 10/11/14 documented as of this encounter
== END 2024-12-22 10:26 | disposition home or self-care (01) ==
PROVIDERS: PCP Internal Medicine; Visit Provider Surgery
DX: D17.20 Benign lipomatous neoplasm of skin and subcutaneous tissue of unspecified limb (principal)
CPT/HCPCS: 99203

== ENCOUNTER → 2024-12-22 09:53 | Outpatient (BNVA) | payer OTHER, SELFPAY | PROVIDERS: PCP Internal Medicine; Visit Provider Surgery ==

== ENCOUNTER 2025-08-05 07:33 | Outpatient (REF) | payer OTHER, SELFPAY ==
--- OUTSIDE RECORDS SUMMARY | 2025-08-01 10:30 | XMS_ITS | Encounter Summary ---
Author Organization [employer] Address [address] [facility] 7 [place] [address] Care Team Providers Care Head Of Acquisitions Name Role Phone Domingo Baker MD Primary Care Provide r Reason for Visit * Reason Comments Follow-up Encounter Details Date Type Department Care Team ([facility] st Contact Info) Description 08/01/2025 10:30 AM EDT Office Visit [facility] MED[facility]INE [address] [place] [address] Domingo Baker MD [address] [place] [address] Type 2 diabetes mellitus without complication, without long-term current use of insulin ([facility]) (Primary Dx); Essential hypertension; Mixed hyperlipidemia; Lipoma of right forearm; Class 1 obesity due to excess calories with serious comorbidity and body mass index (BMI) of 31.0 to 31.9 in adult; Dietary counseling; Exercise counseling; Melanonychia; Encounter for immunization; Preventative health care Social History Tobacco Use Types Packs/Day Years Used Date Smoking Tobacco: Never Passive Smoke Exposure: Never Smokeless Tobacco: Never Alcohol Use Standard Drinks/Week Comments Never 0 (1 standard drink = 0.6 oz pur e alcohol) Depression Answer Date Recorded Patient Health Questionnaire-9 Score 2 08/01/2025 Patient Health Questionnaire-9 Score 2 08/01/2025 Last PHQ-9: Questionnaire Data Not on file 0 08/01/2025 Housing Stability Answer Date Recorded What is your housing situation today? I have mandeep brumfield 08/01/[address] you li ve. Do you have problems with any of the following? None of the above 08/01/2025 Food Insecurity Answer Date Recorded Within the past 12 months, y ou worried that your food would run out before you got money to buy more: Never True 08/01/2025 Within the past 12 months,th e food you bought just didn't last and you didn't have enough money to get more: Never True Transportation Answer Date Recorded In the past 12 months, has l ack of transportation kept you from medical appts, meetings, work or from getting things needed for daily living? No 08/01/2025 Utilities Answer Date Recorded In the past 12 months, has t he electric, gas, oil or water company threatened to shut off services in your home? No 08/01/2025 Depression Answer Date Recorded Patient Health Questionnaire-2 Score 1 08/01/2025 Internet Access Answer Date Recorded Internet Access Q1 No 08/01/2025 Internet Access Q2 I do not want or need it 07/11 Sex and Gender Information Value Date Recorded Sex Assigned at Male 06/15/2023 9:52 AM EDT Legal Sex Male 3:53 PM EDT Gender Identity Male 06/15/2023 9:52 AM EDT Sexual Orientation Straight 06/22/2023 3: 29 PM EDT Sexual Orientation Choose not to disclose 2022 3:29 PM EDT documented as of this encounter Last Filed Vital Signs Vital Sign Reading Time Taken Comments Blood Pressure 110/66 08/01/2025 10:21 AM EDT Pulse 73 08/01/2025 10:21 AM EDT Temperature 37.2 C (98.9 F) 08/01/2025 10:21 AM EDT Respiratory Rate 20 08/01/2025 10:21 AM EDT Oxygen Saturation 98% 08/01/2025 10:21 AM EDT Inhaled Oxygen Concentration - - Weight 91.8 kg (202 lb 6.4 oz) 08/01/2025 10:21 AM EDT Height - - Body Mass Index 31.7 07/21/2025 3:38 PM EDT documented in this encounter Functional Status * Over the past 2 weeks, how often have you been bothered by any of the following problems? Question Answer Date of Assessment Author Patient Health Questionnaire-2 Score 1 07/11 11:51 AM Isabela London [place] * Little interest or pleasure in doing things Answer Date of Assessment Author Several days 08/01/2025 11:51 AM Amna London [place] * Feeling down, depressed, or hopeless Answer Date of Assessment Author Not at all 08/01/2025 11:51 AM Amna London [place] * Trouble falling or staying asleep, or sleeping too much Answer Date of Assessment Author Not at all 08/01/2025 11:51 AM Amna London MA * Feeling tired or having little energy Answer Date of Assessment Author Several days 08/01/2025 11:51 AM Amna London MA * Poor appetite or overeating Answer Date of Assessment Author Not at all 08/01/2025 11:51 AM Amna London MA * Feeling bad about yourself - or that you are a failure or have let yourself or your family down Answer Date of Assessment Author Not at all 08/01/2025 11:51 AM mAna London MA * Trouble concentrating on things, such as reading the newspaper or watching television Answer Date of Assessment Author Not at all 08/01/2025 11:51 AM Amna London MA * Moving or speaking so slowly that other people could have noticed? Or the opposite - being so fidgety or restless that you have been moving around a lot more than usual. Answer Date of Assessment Author Not at all 08/01/2025 11:51 AM Amna London MA * Thoughts that you would be better off or hurting yourself in some way Answer Date of Assessment Author Not at all 08/01/2025 11:51 AM Amna London MA * Patient Health Questionnaire-9 Score Answer Date of Assessment Author 2 08/01/2025 11:51 AM Amna London MA * How difficult have these problems made it for you to do your work, take care of things at home, or get along with other people? Answer Date of Assessment Author Somewhat difficult 08/01/2025 11:51 AM Isabela London MA documented as of this encounter Progress Notes * Domingo Freed MD - 08/01/2025 10:30 AM EDT SUBJECTIVE Matthew Gong is a 59 y.o. male who presents for Follow-up. Julio César?? ismael Gong, 59 years COVID-19 Exposure - tested positive for COVID-19 after attending [employer] - had symptoms for about 10 days, tested positive again, then negative on subsequent tests - Patient was exposed but consistently tested negative for COVID-19 - Denies COVID-19 infection or symptoms Diabetes - Continues daily metformin use - No current symptoms reported Misc - Weight decreased from 205 to 200 pounds prior to visit Diabetes He presents for his follow-up diabetic visit. Pertinent negatives for hypoglycemia include no headaches. Pertinent negatives for diabetes include no chest pain. Review of Systems Constitutional: Negative for fever. HENT: Negative for sore throat. Respiratory: Negative for cough and shortness of breath. Cardiovascular: Negative for chest pain. Gastrointestinal: Negative for abdominal pain. Neurological: Negative for headaches. Allergies[1] OBJECTIVE Vitals: 08/01/25 1021 BP: 110/66 BP Location: Left arm Patient Position: Sitting BP Cuff Size: Adult Pulse: 73 Resp: 20 Temp: 98.9 ??F (37.2 ??C) TempSrc: Oral SpO2: 98% Weight: 202 lb 6.4 oz (91.8 kg) Physical Exam Vitals reviewed. Constitutional: Appearance: Normal appearance. HENT: Head: Normocephalic and atraumatic. Right Ear: External ear normal. Left Ear: External ear normal. Nose: Nose normal. Mouth/Throat: Mouth: Mucous membranes are moist. Eyes: Conjunctiva/sclera: Conjunctivae normal. Cardiovascular: Rate and Rhythm: Normal rate and regular rhythm. Pulmonary: Effort: Pulmonary effort is normal. Breath sounds: Normal breath sounds. Skin: General: Skin is warm. Neurological: Mental Status: He is alert. Mental status is at baseline. Assessment/Plan Problem List Items Addressed This Visit Type 2 diabetes mellitus without complication (CMS/HCC) - Primary Patient is here for a f/u DM today controlled Hgb A1c 08/01/2025: 6.0 Eye exam ordered previously Microalbumin 12/31/2021 was 0.2 Pt on an SERGIO inhibitor Foot check risk zero Plan: continue Metformin 500 mg po q pm Continue Asa 81 mg po daily Pt advised to: adhere to diabetic diet check your blood sugars regularly check your feet on a daily basis. f/u in 4 months Relevant Orders POCT glucose manually resulted POCT glycosylated hemoglobin (Hgb A1c) Essential hypertension Patient here for a f/u BP today is controlled Most recent electrolytes, Bun and Creatinine done on: Lab Results Component Value Date NA 140 05/09/2024 NA 138 06/15/2023 K 4.4 05/09/2024 K 4.3 06/15/2023 CL 106 05/09/2024 CL 107 06/15/2023 BUN 17 (H) 05/09/2024 BUN 13 06/15/2023 CREATININE 0.84 05/09/2024 CREATININE 0.77 06/15/2023 were within normal limits. patient advised to adhere to a low sodium diet, encouraged about medication compliance, counseled about weight loss. EKG 02/16/2024 : NSR No acute ST t changes Repeat BMP Relevant Orders Comprehensive Metabolic Panel Mixed hyperlipidemia Here for a f/u Patient with elevated lipids. Most recent lipid profile from: 05/09/2024 Lab Results Component Value Date TRIG 128 05/09/2024 TRIG 101 06/15/2023 CHOL 196 05/09/2024 CHOL 165 06/15/2023 LDLCHOLCAL 131 (H) 05/09/2024 LDLCHOLCAL 107 06/15/2023 HDL 40 (L) 05/09/2024 HDL 38 06/15/2023 Currently on: Crestor 40 mg po at bedtime Plan: Repeat Lipid profile advised to try to adhere to a low cholesterol diet, counseled and educated about diet and exercise,Patient encouraged to come up with a personal goal for weight loss. Relevant Orders Lipid Panel, Standard Lipoma of right forearm Pt here for a follow up Pt with a palpable superficial mass right anterior arm, Painless, MRI showed: R/MR forearm RT wo/w con IMPRESSION: Findings compatible with an 8.0 x 4.8 x 1.5 cm lipoma of the brachioradialis muscle. 12/05/2024 Seen by General surgeon who recommended excision ( Dr Ornelas 12/22/2024) Pt was going to think about it Class 1 obesity due to excess calories with serious comorbidity and body mass index (BMI) of 31.0 to 31.9 in adult Patient has been counseled and educated about diet and exercise. Personal goal of weight loss discussedPatient has comorbidity of:Patient has comorbidity of: DM Dietary Recommendations: Fruits, vegetables, whole grains, protein foods, and fat-free or low-fat dairy products are healthychoices. Eat different types of protein foods in your diet. This can include seafood, lean meats, poultry, beans, peas, lentils, nuts, seeds, soy products, and eggs. Limit foods and beverages higher in added sugars, saturated fat, and sodium. Exercise Recommendations: At least 150 minutes of moderate-intensity physical activity per week, or an equivalent combinationof moderate- and vigorous-intensity activity Bradley Seen by lam Dubon Preventative health care PSA 07/28/2022: 0.65 Will repeat, he did not do the one I ordered previously Colonoscopy: 03/2018 Normal aside from diverticulosis Vaccines: TDAP: 02/22/2015 Relevant Orders PSA, Screen Other Visit Diagnoses Dietary counseling Exercise counseling Encounter for immunization Relevant Orders FLU VACCINE TRIVALENT [id number] (Fluarix) 6 mo + This note was drafted using Ambient (AI) technology. The patient/patient's guardian has been informed and has consented to the use of this technology: Yes No future appointments. [1] Allergies Allergen Reactions Penicillins Dizziness documented in this encounter Miscellaneous Notes * Assessment & Plan Note - Domingo Freed MD - 08/01/2025 10:38 AM EDT Associated Problem(s): Melanonychia Seen by lam Dubon * Assessment & Plan Note - Domingo Freed MD - 08/01/2025 10:32 AM EDT Associated Problem(s): Class 1 obesity due to excess calories with serious comorbidity and body mass index (BMI) of 31.0 to 31.9 in adult Patient has been counseled and educated about diet and exercise. Personal goal of weight loss discussedPatient has comorbidity of:Patient has comorbidity of: DM Dietary Recommendations: Fruits, vegetables, whole grains, protein foods, and fat-free or low-fat dairy products are healthychoices. Eat different types of protein foods in your diet. This can include seafood, lean meats, poultry, beans, peas, lentils, nuts, seeds, soy products, and eggs. Limit foods and beverages higher in added sugars, saturated fat, and sodium. Exercise Recommendations: At least 150 minutes of moderate-intensity physical activity per week, or an equivalent combinationof moderate- and vigorous-intensity activity * Assessment & Plan Note - Domingo Freed MD - 08/01/2025 10:31 AM EDT Associated Problem(s): Lipoma of right forearm Pt here for a follow up Pt with a palpable superficial mass right anterior arm, Painless, MRI showed: R/MR forearm RT wo/w con IMPRESSION: Findings compatible with an 8.0 x 4.8 x 1.5 cm lipoma of the brachioradialis muscle. 12/05/2024 Seen by General surgeon who recommended excision ( Dr Ornelas 12/22/2024) Pt was going to think about it * Assessment & Plan Note - Domingo Freed MD - 08/01/2025 10:29 AM EDT Associated Problem(s): Preventative health care PSA 07/28/2022: 0.65 Will repeat, he did not do the one I ordered previously Colonoscopy: 03/2018 Normal aside from diverticulosis Vaccines: TDAP: 02/22/2015 * Assessment & Plan Note - Domingo Freed MD - 08/01/2025 10:28 AM EDT Associated Problem(s): Mixed hyperlipidemia Here for a f/u Patient with elevated lipids. Most recent lipid profile from: 05/09/2024 Lab Results Component Value Date TRIG 128 05/09/2024 TRIG 101 06/15/2023 CHOL 196 05/09/2024 CHOL 165 06/15/2023 LDLCHOLCAL 131 (H) 05/09/2024 LDLCHOLCAL 107 06/15/2023 HDL 40 (L) 05/09/2024 HDL 38 06/15/2023 Currently on: Crestor 40 mg po at bedtime Plan: Repeat Lipid profile advised to try to adhere to a low cholesterol diet, counseled and educated about diet and exercise,Patient encouraged to come up with a personal goal for weight loss. * Assessment & Plan Note - Domingo Freed MD - 08/01/2025 10:28 AM EDT Associated Problem(s): Essential hypertension Patient here for a f/u BP today is controlled Most recent electrolytes, Bun and Creatinine done on: Lab Results Component Value Date NA 140 05/09/2024 NA 138 06/15/2023 K 4.4 05/09/2024 K 4.3 06/15/2023 CL 106 05/09/2024 CL 107 06/15/2023 BUN 17 (H) 05/09/2024 BUN 13 06/15/2023 CREATININE 0.84 05/09/2024 CREATININE 0.77 06/15/2023 were within normal limits. patient advised to adhere to a low sodium diet, encouraged about medication compliance, counseled about weight loss. EKG 02/16/2024 : NSR No acute ST t changes Repeat BMP * Assessment & Plan Note - Domingo Freed MD - 08/01/2025 10:28 AM EDT Associated Problem(s): Type 2 diabetes mellitus without complication (CMS/HCC) Patient is here for a f/u DM today controlled Hgb A1c 08/01/2025: 6.0 Eye exam ordered previously Microalbumin 12/31/2021 was 0.2 Pt on an SERGIO inhibitor Foot check risk zero Plan: continue Metformin 500 mg po q pm Continue Asa 81 mg po daily Pt advised to: adhere to diabetic diet check your blood sugars regularly check your feet on a daily basis. f/u in 4 months documented in this encounter Plan of Treatment Scheduled Orders Name Type Priority Associated Diagnoses Orde r Schedule Comprehensive Metabolic Panel Lab Routine Essential hypertension Ordered: 08/01/2025 Lipid Panel, Standard Lab Routine Mixed hyperlipidemia Ordered: 08/01/2025 PSA, Screen Lab Routine Preventative health care Ordered: 08/01/2025 documented as of this encounter Procedures Procedure Name Priority Date/Time Associated Diagnosis Comments POCT GLUCOSE Routine 08/01/2025 11:11 AM EDT Type 2 diabetes mellitus without complication, without long-term current use of insulin ([facility]) POCT GLYCOSYLATED HEMOGLOBIN (HGB A1C) Routine 08/01/2025 11:09 AM EDT Type 2 diabetes mellitus without complication, without long-term current use of insulin ([facility]) documented in this encounter Results * POCT glucose manually resulted (08/01/2025 11:11 AM EDT) Glucose Blood, POC 98 60 - 200 mg/dL QC Media Lot # [id number] Lot# Expiration Date [id number] Blood Capillary blood specimen / Unknown 08/01/2025 11:11 AM EDT Domingo Freed MD POINT OF CARE TEST EN TER/EDIT ORDERABLES Final Result * (ABNORMAL) POCT glycosylated hemoglobin (Hgb A1c) (08/01/2025 11:09 AM EDT) Hemoglobin A1C 6.0(A) 4.0 - 5.7 % QC Media Lot # [id number] Lot# Expiration Date [id number] Blood Capillary blood specimen / Unknown 08/01/2025 11:09 AM EDT us Domingo Freed MD POINT OF CARE TEST EN TER/EDIT ORDERABLES Final Result documented in this encounter Visit Diagnoses Diagnosis Type 2 diabetes mellitus without complication, without long-term current use of insulin ([facility])- Primary Essential hypertension Unspecified essential hypertension Mixed hyperlipidemia Lipoma of right forearm Class 1 obesity due to excess calories with serious comorbidity and body mass index (BMI) of 31.0 to 31.9 in adult Dietary counseling Dietary surveillance and counseling Exercise counseling Melanonychia Other specified disease of nail Encounter for immunization Preventative health care Routine general medical examination at a health care facility documented in this encounter Additional Health Concerns Assessment Noted Time PHQ-9 Depression Total Score: 2 08/01/20 25 11:51 AM EDT documented as of this encounter Care Teams Head Of Acquisitions Relationship Specialty Start Date End Date Domingo Baker MD [address] [place] [id number] PCP - General Internal Medicine 10/11/14 documented as of this encounter
--- OUTSIDE RECORDS SUMMARY | 2025-08-05 07:37 | XMS_ITS | Encounter Summary ---
Author Organization [employer] Address [address] [facility] 7 [place] [address] Care Team Providers Care Founder And Chief Technical Officer Name Role Phone Domingo Baker MD Primary Care Provide r Reason for Visit * Reason Comments Med Refill Encounter Details Date Type Department Care Team ([facility] st Contact Info) Description 08/28/[address] [facility] MED[facility]INE [address] [place] [address] Domingo Baker MD [address] [place] [address] Low vitamin D level Social History Tobacco [...] documented as of this encounter Care Teams Founder And Chief Technical Officer Relationship Specialty Start Date End Date Domingo Baker MD [address] [place] [id number] PCP - General Internal Medicine 10/11/14 documented as of this encounter
--- OUTSIDE RECORDS SUMMARY | 2025-08-05 07:37 | XMS_ITS | Encounter Summary ---
Author Organization [employer] Address [address] [facility] 7t [place] [address] Care Team Providers Care Boat Motor Mechanic Name Role Phone Domingo Baker MD Primary Care Provide r Encounter Details Date Type Department Care Team ([facility] Contact Info) Description 07/29/2023 Orders Only [facility] MED & PEDS [address] [place], [place] [phone] Krystin Reeder LPN Social History Tobacco Use [...] Time PHQ-9 Depression Total Score: 0 02/18/20 2:28 PM EDT documented as of this encounter Care Teams Boat Motor Mechanic Relationship Specialty Start Date End Date Domingo Baker MD [address] [place] [id number] PCP - General Internal Medicine 10/11/14 documented as of this encounter
--- OUTSIDE RECORDS SUMMARY | 2025-08-05 07:37 | XMS_ITS | Encounter Summary ---
Author Organization [employer] Address [address] [facility] 7t [place] [address] Care Team Providers Care Export Sales Assistant Name Role Phone Domingo Baker MD Primary Care Provide r Encounter Details Date Type Department Care Team (Latest Contact Info) Description 08/01/2025 Travel Social History Tobacco Use Types Packs/Day [...] PM EDT documented as of this encounter Functional Status * Over the [...] 11:51 AM Amna London MA * Trouble concentrating on things, [...] Author Not at all 08/01/2025 11:51 AM EDAmna Rashid MA * Thoughts that you would be better off or hurting yourself in some way Answer Date of Assessment Author Not at all 08/01/2025 11:51 AM Amna London MA * Patient Health Questionnaire-9 Score Answer Date of Assessment Author 2 08/01/2025 11:51 AM EDAmna Rashid MA * How difficult have these problems made it for you to do your work, take care of things at home, or get along with other people? Answer Date of Assessment Author Somewhat difficult 08/01/2025 11:51 AM Isabela London [place] documented as of this encounter Plan of Treatment Not on file documented as of this encounter Visit Diagnoses Not on filedocumented in this encounter Additional Health Concerns Assessment Noted Time PHQ-9 Depression Total Score: 2 08/01/20 25 11:51 AM EDT documented as of this encounter Care Teams Export Sales Assistant Relationship Specialty Start Date End Date Domingo Baker MD [address] [facility] [place] [address] PCP - General Internal Medicine 10/11/14 documented as of this encounter
--- OUTSIDE RECORDS SUMMARY | 2025-08-05 07:37 | XMS_ITS | Encounter Summary ---
Author Organization [employer] Address [address] [facility] 7t [place] [address] Care Team Providers Care Surfacer Operator Name Role Phone Domingo Baker MD Primary Care Provide r Encounter Details Date Type Department Care Team ([facility] st Contact Info) Description 12/15/2022 Orders Only [facility] MEDICINE [address] [place], [place] [phone] Alivia Martell LPN Social History Tobacco Use [...] on filedocumented in this encounter Care Teams Surfacer Operator Relationship Specialty Start Date End Date Domingo Baker MD [address] [place] [address] PCP - General Internal Medicine 10/11/14 documented as of this encounter
--- OUTSIDE RECORDS SUMMARY | 2025-08-05 07:37 | XMS_ITS | Patient Health Record ---
Author Organization [facility] Address [address] [place] [address] Care Team Providers Care Distribution Center Associate Name Role Phone Satnam Freed MD, Domingo Primary Care Provide Mars Guerrero [phone] Allergies Allergen (clinical drug ingredient) Drug/Non Drug Allergy documented on EMR Reaction Allergy Type Onset Date Status Penicillin Unknown Drug Allergy Active Reason For Referral No Information Medications Medication SIG (Take, Route, Fr equency, Duration) Notes Start Date End Date Status Omeprazole 20 MG TAKE 1 CAPSULE BY MO UTH TWICE DAILY UNTIL FINISHED Oral for 14 Active metroNIDAZOLE 500 MG TAKE 1 TABLET BY MO UTH FOUR TIMES DAILY UNTIL FINISHED Oral for 14 Active Tetracycline HCl 500 MG TAKE 1 CAPSULE B Y MOUTH FOUR TIMES DAILY UNTIL FINISHED Oral for 14 Active Social History Tobacco Use: Social History Observation Description Date Details (start date - stop date) Former Smoker NA - NA Tobacco Use/Smoking Question Answer Notes Patient is a former smoker How long has it been since you last smoked? > 10 years Alcohol Screen Question Answer Notes Did you have a drink containing alcohol in the p ast year? No Points 0 Interpretation Negative Section Notes: Nonsmoker > 20 yrs, no sig a lochol Problems Problem Type SNOMED Code ICD Code Onset Dates Problem Status W/U Status Risk Notes Problem [id number] Encounter for screening for malignant neoplasm of colon (Z12.11) Active confirmed Problem 472841231 Preprocedural examination (Z01.818) Active confirmed Plan Of Treatment Future Test Test Name Order Date COLONOSCOPY 01/13/2018 Insurance Providers Payer Name Payer Address Payer Phone Subscriber Number Group Number Insured Name Patient Relationship to Insured Coverage Start Date Coverage End Date [place] [address] [address] [place] [address] [phone] [id number] [employer] Self - patient is the insured Medical (General) History Medical History History ICD Code Denies PR,DM,CVA,Lung disease,renal dise ase + H.pylori---01/2018 treated with omeprazole and antibiotics--he is scheduled for abdominal ultrasound on 01/14/18 He describes that he snores and has had 2 sleep studies which have been inconclusive for sleep apnea--however, he thinks that he will be having another study at some point as his doctor thinks he has sleep apnea Surgical History Surgery Date(Month/Year) Vasectomy
--- OUTSIDE RECORDS SUMMARY | 2025-08-05 07:37 | XMS_ITS | Encounter Summary ---
Author Organization [employer] Address 75 [facility] 7 [place] [address] Care Team Providers Care Retail Planning Manager Name Role Phone Domingo Baker MD Primary Care Provide r Encounter Details Date Type Department Care Team ([facility] st Contact Info) Description 03/13/2023 Abstract [facility] MEDICINE [address] [place] [address] Domingo Baker MD [address] [place] [address] Social History Tobacco Use Types Packs/Day Years [...] see scanned notes ) us Historical Provider HEALTH MAINTENANCE Final Result documented in this encounter Visit Diagnoses Not on filedocumented in this encounter Additional Health Concerns Assessment Noted Time PHQ-9 Depression Total Score: 0 02/18/20 23 2:28 PM EDT documented as of this encounter Care Teams Retail Planning Manager Relationship Specialty Start Date End Date Domingo Baker MD [address] [place] [address] PCP - General Internal Medicine 10/11/14 documented as of this encounter
--- OUTSIDE RECORDS SUMMARY | 2025-08-05 07:37 | XMS_ITS | Encounter Summary ---
Author Organization [employer] Address 75 [facility] 7 [place] [address] Care Team Providers Care Tip Out Worker Name Role Phone Domingo Baker MD Primary Care Provide r Reason for Visit * Reason Onset Date Comments Returning Call 02/09/2024 Encounter Details Date Type Department Care Team ([facility] st Contact Info) Description 02/09/2024 Telephone [facility] MEDICINE [address] [place] [address] Domingo Baker MD [address] [place] [address] Returning Call Social History Tobacco Use Types [...] Miscellaneous Notes * Telephone Encounter - Mark Calvillo - 02/09/2024 4:17 PM EDT Tc from pt returning call regarding message below. CC Isabela Harvey placed outbound call to patient to complete pre-visit planning. No answer at this time. Patient name and were not confirmed. CC left voicemail requesting return call. Direct contactinformation provided. Please contact pt at [phone]. documented in this encounter Plan of Treatment Not on file documented as of this encounter Visit Diagnoses Not on filedocumented in this encounter Additional Health Concerns Assessment Noted Time PHQ-9 Depression Total Score: 0 02/18/20 23 2:28 PM EDT documented as of this encounter Care Teams Tip Out Worker Relationship Specialty Start Date End Date Domingo Baker MD [address] [place] [phone] PCP - General Internal Medicine 10/11/14 documented as of this encounter
--- OUTSIDE RECORDS SUMMARY | 2025-08-05 07:37 | XMS_ITS | Encounter Summary ---
Author Organization [employer] Address 75 [facility] 7 [place] [address] Care Team Providers Care Crocheter Hand Name Role Phone Domingo Baker MD Primary Care Provide r Reason for Visit * Reason Onset Date Comments chart prep 07/31/2025 Encounter Details Date Type Department Care Team ([facility] st Contact Info) Description 07/31/2025 Telephone [facility] MEDICINE [address] [place] [address] Domingo Baker MD [address] [place] [address] chart prep Social History Tobacco Use Types Packs/Day Years [...] encounter Miscellaneous Notes * Telephone Encounter - Sherine Mills [place] - 07/31/2025 10:37 AM EDT Chart Prep Labs: done Images: done Screenings: Eye Exam, Foot Exam, and HIV screening Vaccines due: Covid Due, Tdap Due, Hep B Due, PCV20 Due, Flu Due, and Shingles in pharmacy Due Referrals: Completed Overdue care gaps: A1C, Glucose, SDOH, PHQ9, GAD7, and Oral Health documented in this encounter Plan of Treatment Not on file documented as of this encounter Visit Diagnoses Not on filedocumented in this encounter Additional Health Concerns Assessment Noted Time PHQ-9 Depression Total Score: 0 05/17/20 24 3:11 PM EDT documented as of this encounter Care Teams Crocheter Hand Relationship Specialty Start Date End Date Domingo Baker MD [address] [place] [address] PCP - General Internal Medicine 10/11/14 documented as of this encounter
--- OUTSIDE RECORDS SUMMARY | 2025-08-05 07:37 | XMS_ITS | Encounter Summary ---
Author Organization [employer] Address 75 [facility] 7 [place] [address] Care Team Providers Care Outreach Manager Name Role Phone Domingo Baker MD Primary Care Provide r Reason for Visit * Reason Comments Med Refill Encounter Details Date Type Department Care Team (Late st Contact Info) Description 02/23/2023 Refill [facility] MEDICINE [address] [place] [address] Domingo Baker MD [address] [place] [address] Primary hypertension Social History Tobacco Use Types [...] documented as of this encounter Care Teams Outreach Manager Relationship Specialty Start Date End Date Domingo Baker MD [address] [place] [address] PCP - General Internal Medicine 10/11/14 documented as of this encounter
--- OUTSIDE RECORDS SUMMARY | 2025-08-05 07:37 | XMS_ITS | Encounter Summary ---
Author Organization [employer] Address 75 [facility] 7t [place] [address] Care Team Providers Care Ferryboat Ticket Taker Name Role Phone Domingo Baker MD Primary Care Provide r Encounter Details Date Type Department Care Team ([facility] st Contact Info) Description 03/30/2023 Orders Only [facility] MED [facility] PEDS [address] [place] [address] Krystin Reeder LPN Social History Tobacco Use [...] documented as of this encounter Care Teams Ferryboat Ticket Taker Relationship Specialty Start Date End Date Domingo Baker MD [address] [place] [phone] PCP - General Internal Medicine 10/11/14 documented as of this encounter
--- OUTSIDE RECORDS SUMMARY | 2025-08-05 07:37 | XMS_ITS | Clinical Summary ---
Author Organization [employer] Address [address] [place] [address] 7t [place] [address] Care Team Providers Care Convention Worker Name Role Phone Domingo Baker MD Primary Care Provide r Allergies Active Allergy Reactions Criticality Noted Date Comments Penicillins Dizziness 08/31/2013 Medications Vitamin D High Potency 25 MCG (1000 UT) capsuleIndication s:Low vitamin D level TAKE 1 CAPSULE BY MOUTH EVERY DAY 90 capsule 024 Active FREESTYLE LITE test stripIndications: Type 2 diabetes mellitus without complications (CMS/[facility]ER[facility]) TEST BLOOD SUGAR TWICE DAILY DIRECTED 50 strip 6 024 Active triamcinolone (Kenalog) 0.1 % cream Apply topically if needed in the morning and at bedtime (pain and swelling). 30 g 2 024 Active metFORMIN (Glucophage) 500 MG tablet TAKE 1 TABLET BY MOUTH EVERY DAY IN THE EVENING WITH A MEAL 90 tablet 2 025 Active Aspirin Low Dose 81 MG EC tablet TAKE 1 TABLET BY MOUTH EVERY MORNING 30 tablet 5 025 Active rosuvastatin (Crestor) 40 MG tabletIndications :Mixed hyperlipidemia TAKE 1 TABLET BY MOUTH EVERY DAY 90 tablet 1 025 Active lisinopril 20 MG tabletIndications :Primary hypertension TAKE 1 TABLET EVERY DAY 30 tablet 5 025 Active vardenafil (Levitra) 10 MG tablet TAKE 1 TABLET 1 HOUR BEFORE SEXUAL RELATIONS ONCE DAILY NEEDED. 8 tablet 6 023 2024 Discontinued lisinopril 20 MG tabletIndications :Primary hypertension TAKE 1 TABLET BY MOUTH EVERY DAY 30 tablet 5 025 2024 Discontinued Nirmatrelvir&Helio navir 300/100 (Paxlovid, 300/100,) 20 x 150 MG & 10 x 100MG tablet therapy packIndications:Khang OVID-19 Take 3 tablets by mouth 2 times daily for 5 days. Per package instructions 30 each 025 2024 Active Problems Problem Noted Date Diagnosed Date Conjunctival hemorrhage of left eye 11/29/2024 Assessment & Plan (11/29/2024 3:27 PM EST): Called [facility] and as recommended, advised [...] need to present himself to the ER Melanonychia 11/08/2024 Assessment & Plan (08/01/2025 10:38 AM EDT): Seen by Dermatologylam Assessment & Plan (11/08/2024 1:11 PM EST): [...] illness, although he has no systemic symptoms Lipoma of right forearm 09/22/2024 Assessment & Plan (08/01/2025 10:31 AM EDT): Pt here for a follow up Pt with a palpable superficial mass right anterior arm, Painless, MRI showed: R/MR forearm RT wo/w con IMPRESSION: Findings compatible with an 8.0 x 4.8 x 1.5 cm lipoma of the brachioradialis muscle. 12/05/2024 Seen by General surgeon who recommended excision ( Dr Ornelas 12/22/2024) Pt was going to think about it Assessment & Plan (09/22/2024 3:41 PM EST): Palpable superficial mass right anterior arm approx 2 x 3 inch. Painless, Pt tells me he has had that for years Plan: MRI right arm to evaluate the mass [facility] care 05/17/2024 Assessment & Plan (08/01/2025 10:29 AM EDT): PSA 07/28/2022: 0.65 Will repeat, he did not do the one I ordered previously Colonoscopy: 03/2018 Normal aside from diverticulosis Vaccines: TDAP: 02/22/2015 Assessment & Plan (05/17/2024 8:14 AM EDT): [...] diabetes mellitus without complication Assessment & Plan (08/01/2025 10:28 AM EDT): Patient is here for a f/u [...] f/u in 4 months Assessment & Plan (11/08/2024 1:13 PM EST): [...] months Mixed hyperlipidemia 02/17/2023 Assessment & Plan (08/01/2025 10:28 AM EDT): Here for a f/u Patient with [...] goal for weight loss. Assessment & Plan (09/22/2024 3:38 PM EST): [...] loss. Essential hypertension 02/17/2023 Assessment & Plan (08/01/2025 10:28 AM EDT): Patient here for a f/u [...] No acute ST t changes Repeat BMP Assessment & Plan (05/17/2024 8:08 AM EDT): [...] Dr Howe Obstructive sleep apnea syndrome 08/31/2013 Class 1 obesity due to exces s calories with serious comorbidity and body mass index (BMI) of 31.0 to 31.9 in adult 03/21/2013 Assessment & Plan (08/01/2025 10:32 AM EDT): Patient has been counseled and educated about diet and exercise. Personal goal of weight loss discussedPatient has comorbidity of:Patient has comorbidity of: DM Dietary Recommendations: Fruits, vegetables, whole grains, protein foods, and fat-free or low-fat dairy products are healthy choices. Eat different types of protein foods in your diet. This can include seafood, lean meats, poultry, beans, peas, lentils, nuts, seeds, soy products, and eggs. Limit foods and beverages higher in added sugars, saturated fat, and sodium. Exercise Recommendations: At least 150 minutes of moderate-intensity physical activity per week, or an equivalent combination of moderate- and vigorous-intensity activity Assessment & Plan (05/17/2024 8:09 AM EDT): [...] Encounters Date Type Department Care Team Description 08/01/2025 10:30 AM EDT Office Visit [facility] MEDICINE [address] [place] [address] Domingo Baker MD Type 2 diabetes mellitus without complication, without long-term current use of insulin ([facility]) (Primary Dx); Essential hypertension; Mixed hyperlipidemia; Lipoma of right forearm; Class 1 obesity due to excess calories with serious comorbidity and body mass index (BMI) of 31.0 to 31.9 in adult; Dietary counseling; Exercise counseling; Melanonychia; Encounter for immunization; Preventative health care 08/01/2025 Travel 07/31/2025 Telephone [facility] MEDICINE [address] [place] [address] Domingo Baker MD chart prep 07/25/2025 Travel 07/21/2025 3:40 PM EDT Office Visit [facility] WALK-IN CENTER [address] [place] [address] [place], [facility] COVID-19 (Primary Dx) 07/21/2025 Travel 07/14/2025 Refill [facility] MEDICINE [address] [place] [address] Domingo Baker MD Primary hypertension 06/07/2025 Telephone [facility] MEDICINE [address] [place] [address] Domingo Baker MD OUTREACH 06/04/2025 Refill [facility] MEDICINE [address] [place] [address] Domingo Baker MD Mixed hyperlipidemia 05/25/2025 Telephone [facility] MEDICINE [address] [place] [address] Domingo Baker MD July Recall from Last 3 Months Immunizations Immunization Administration Dates Next Due Influenza injectable quadriv alent IIV4 with preservative 08/27/2017 Influenza injectable quadriv alent preservative free 07/29/2022,08/19/2021,12/13/2019,2015 Influenza, Split (incl. erasmo fied surface antigen) 03/21/2013 Influenza, seasonal, injecta ble, preservative free 08/01/2025,09/22/2024 Pfizer Covid-19 Vaccine 12+ jolanta-sucrose (Damon Cap) 05/02/2022 Tdap 08/01/2025,02/22/2015 Social History Tobacco Use Types Packs/Day Years [...] 6.4 oz) 08/01/2025 10:21 AM EDT Height 170.2 cm (5' 7 ) 07/21/2025 3:38 PM EDT Body Mass Index 31.7 07/21/2025 3:38 PM EDT Plan of Treatment Health Maintenance Due Date [...] Screening 12/31/2022 12/31/2021 Dental X-Ray: Bitewings 07/07/2024 07/06/20, 11/13/2017, 07/07/2011, Additional history exists Lipid Panel 05/09/2025 05/09/2024, 0805/2023, 07/28/2022, Additional history exists COVID-19 Vaccine ( season) 2025 05/02/2022, 10/08/2021, 02/16/2021 Alcohol/Substance Use Screening 09/22/2025 09/22/2024 Diabetes: Hemoglobin A1C 01/29/2026 025, 09/22/2024, 05/17/2024, Additional history exists Depression Screening 08/01/2026 08/01/2025, 08/01/20 25 Disability Screening 08/01/2026 08/01/2025 SDOH Screening 08/01/2026 08/01/2025 Tobacco Screening 08/01/2026 08/01/2025 Colonoscopy 03/24/2028 03/24/2018 Colorectal Cancer Screening 03/24/2028 DTaP/Tdap/Td Vaccines (3 - Td or Tdap) 08/01/2035 08/01/2025, 02/22/2015 RSV Patients and Patients Aged 60 years or older (1 - 1-dose 75+ series) 2040 Hepatitis C Screening Completed 03/11/2022 Influenza Vaccine Completed 08/01/2025, , 08/21/2023, Additional history exists HIB Vaccines Aged Out [...] patient's age to complete this topic Meningococcal B Vaccine Aged Out No l onger eligible based on patient's age to complete [...] complication, without long-term current use of insulin ([facility]) POCT GLYCOSYLATED HEMOGLOBIN (HGB A1C) Routine 08/01/2025 11:09 AM EDT Type 2 diabetes mellitus without complication, without long-term current use of insulin ([facility]) POCT INFLUENZA B (ID NOW RAPID MOLECULAR) Routine 07/21/2025 3:53 PM EDT COVID-19 POCT INFLUENZA A (ID NOW RAPID MOLECULAR) Routine 07/21/2025 3:53 PM EDT COVID-19 POCT COVID-19 AG MARTINEZ ID NOW Routine 07/21/2025 3:53 PM EDT COVID-19 LIPID PANEL WITH REFLEX TO DIRECT LDL Routine 05/09/2024 8:32 AM EDT Type 2 diabetes mellitus without complication, without long-term current use of insulin (CMS/HCC) BITEWING - SINGLE RADIOGRAPHIC IMAGE Routine 07/06/2023 3:00 PM EDT Fractured dental samaritan with loss of material ZZZ HISTORICAL HEPATITIS [...] Relevant to Health Maintenance Results * POCT glucose manually resulted (08/01/2025 11:11 AM EDT) Pathologist [facility] Glucose Blood, POC 98 60 - 200 mg/dL QC Media Lot # [id number] Lot# Expiration Date [id number] Blood Capillary blood specimen / Unknown 08/01/2025 11:11 AM EDT Domingo Freed MD POINT OF CARE TEST EN TER/EDIT ORDERABLES Final Result * (ABNORMAL) POCT glycosylated hemoglobin (Hgb A1c) (08/01/2025 11:09 AM EDT) Hemoglobin A1C 6.0(A) 4.0 - 5.7 % QC Media Lot # [id number] Lot# Expiration Date [id number] Blood Capillary blood specimen / Unknown 08/01/2025 11:09 AM EDT Domingo Freed MD POINT OF CARE TEST EN TER/EDIT ORDERABLES Final Result * Influenza B (ID NOW Rapid Molecular) (07/21/2025 3:53 PM EDT) Influenza B Negative Negative, Indeterminate [facility] Swab 07/21/2025 3:53 PM EDT [facility] POINT OF CARE TEST ENTER/EDIT ORDERABLES Final Result Performing Organization Address [facility]/ZIP Co de Phone Number [facility] [address] [place] [phone] * Influenza A (ID NOW Rapid Molecular) (07/21/2025 3:53 PM EDT) Influenza A Negative Negative, Indeterminate [facility] Swab 07/21/2025 3:53 PM EDT Result [facility] POINT OF CARE TEST ENTER/EDIT ORDERABLES Final Result Performing Organization Address [facility] Co de Phone Number [facility] [address] [place] [phone] * POCT COVID-19 Ag Martinez ID NOW (07/21/2025 3:53 PM EDT) Coronavirus Antigen PCR Negative Negative, Indeterminate, None Detected, Invalid, Specimen unsatisfactory for evaluation, Weakly Positive, 2+ [facility] Swab 07/21/2025 3:53 PM EDT [facility] POINT OF CARE TEST ENTER/EDIT ORDERABLES Final Result Performing Organization Address City/[facility]/ZIP Co de Phone Number [facility] [address] [place] [address] [phone] * (ABNORMAL) Lipid Panel with Reflex to Direct LDL (05/09/2024 8:32 AM EDT) Triglycerides 128 <150 mg/dL [facility] Comment:Desirable Triglyceri de: less than 150 mg/dLBorderline High Triglyceride 150-199 mg/dLHigh Triglyceride: 200-499 mg/dLVery High Triglyceride: greater than or equal to 5OO mg/dL Cholesterol 196 <200 mg/dL [facility] Comment:Desirable Cholestero l: less than 200 mg/dLBorderline High Cholesterol: 200-239 mg/dLHigh Cholesterol: greater than 239 mg/dL LDL Cholesterol Calculated 131(H) <100 mg/dL [facility] Comment:Desirable LDL: less than 100 mg/dLNear Optimal/Above Optimal LDL: 110- 129 mg/dLBorderline High LDL: 130-159 mg/dLHigh LDL: 160-189 mg/dLVery High LDL: greater than or equal to 190 mg/dL HDL Cholesterol 40(L) >40 mg/dL [facility] Comment:Desirable HDL: great er than 40 mg/dL Note: This HDL assay may give artificially low results in patients with liver disease. Blood 05/09/2024 8:32 AM EDT 05/09/2024 11:39 AM EDT us Domingo Freed MD LAB BLOOD ORDERABLES Final Result Performing Organization Address [facility]/ZIP Co de Phone Number [facility] [address] [place] [address] [phone] * HEPATITIS C AB W/REFL TO HCV RNA, QN, PCR (03/11/2022 3:23 PM EDT) HEPATITIS C ANTIBODY NON-REACT [facility] NON-REACT [facility] INDEX 0.06 <1.00 [facility] Comment: HCV antibody was non-reactive. There is no laboratory evidence of HCV infection. In most cases, no further action is required. However, if recent HCV exposure is suspected, a test for HCV RNA (test code 33927) is suggested. For additional information please refer to http://[employer].Holograam/faq/NYT20b1 (This link is being provided for informational/ educational purposes only.) 03/11/2022 3:23 PM EDT Domingo Freed MD HISTORICAL/NON ORDERA BLE LABS Final Result Performing Organization Address [facility] de Phone Number [facility] [address] * ALBUMIN, RANDOM URINE W/CREATININE (12/31/2021 8:25 AM EST) Microalbumin Urine 0.2 See Note: mg/dL [facility] Comment: Reference Range: Reference Range Not established Microalb/Creat Ratio 1 <30 mcg/mg creat [facility] Comment: The ADA defines abnormalities in albumin excretion as follows: Albuminuria Category Result (mcg/mg creatinine) Normal to Mildly increased <30 Moderately increased 30-299 Severely increased > OR = 300 The ADA recommends that at least two of three specimens collected within a 3-6 month period be abnormal before considering a patient to be within a diagnostic category. Creatinine, Urine 139 20 - 320 mg/dL [facility] 12/31/2021 8:25 AM EST Domingo Freed MD LAB URINE ORDERABLES Final Result Performing Organization Address [facility] de Phone Number [facility] [place] [address], * Hm Colonoscopy (03/24/2018) Colonoscopy Normal Normal 03/24/2018 Narrative Janie Pisano - 03/24/2018 1:10 PM EDT Recommended 10 year follow up ( see scanned notes ) Historical Provider MD HEALTH MAINTENANCE Final Result from Last 3 Months or Most Recently Relevant to Health Maintenance Insurance [employer] [place] [address] [place] [address] [facility] Care Teams Convention Worker Relationship Specialty Start Date End Date Domingo Baker MD [address] [place] [phone] PCP - General Internal Medicine 10/11/14
--- OUTSIDE RECORDS SUMMARY | 2025-08-05 07:37 | XMS_ITS | Encounter Summary ---
Author Organization [employer] Address 75 [facility] 7 [place] [address] Care Team Providers Care Rotary Rock Drilling Machine Operator Name Role Phone Domingo Baker MD Primary Care Provide r Reason for Visit * Reason Comments Med Refill Encounter Details Date Type Department Care Team (Late st Contact Info) Description 08/05/2023 Refill [facility] MEDICINE [address] [place] [address] Domingo Baker MD [address] [place] [address] Social History Tobacco Use Types Packs/Day Years [...] documented as of this encounter Care Teams Rotary Rock Drilling Machine Operator Relationship Specialty Start Date End Date Domingo Baker MD [address] [place] [address] PCP - General Internal Medicine 10/11/14 documented as of this encounter
--- OUTSIDE RECORDS SUMMARY | 2025-08-05 07:37 | XMS_ITS | Encounter Summary ---
Author Organization [employer] Address 75 [facility] 7 [place] [address] Care Team Providers Care Ethylbenzene Converter Operator Name Role Phone Domingo Baker MD Primary Care Provide r Reason for Visit * Reason Comments Med Refill Encounter Details Date Type Department Care Team ([facility] st Contact Info) Description 03/08/2024 Refill [facility] MEDICINE [address] [place] [address] Domingo Baker MD [address] [place], [place] [phone] Primary hypertension Social History Tobacco Use Types [...] documented as of this encounter Care Teams Ethylbenzene Converter Operator Relationship Specialty Start Date End Date Domingo Baker MD [address] [place] [phone] PCP - General Internal Medicine 10/11/14 documented as of this encounter
--- OUTSIDE RECORDS SUMMARY | 2025-08-05 07:37 | XMS_ITS | Encounter Summary ---
Author Organization [employer] Address 75 [facility] 7t [place] [address] Care Team Providers Care Bessemer Regulator Name Role Phone Domingo Baker MD Primary Care Provide r Encounter Details Date Type Department Care Team ([facility] st Contact Info) Description 12/25/2022 Orders Only [facility] MED [facility] PEDS [address] [place] [phone] Krystin Reeder LPN Social History Tobacco Use [...] on filedocumented in this encounter Care Teams Bessemer Regulator Relationship Specialty Start Date End Date Domingo Baker MD [address] [place] [phone] PCP - General Internal Medicine 10/11/14 documented as of this encounter
[2025-08-05 08:55] LABS: Alanine Aminotransferase 37 U/L (0-40); Albumin Level 4.6 g/dL (3.5-5.0); Alkaline Phosphatase 72 U/L (39-117); Anion Gap 10 (12-20); Aspartate Amino Transferase 27 U/L (5-37); Blood Urea Nitrogen 14 mg/dL (9-16); Calcium 9.5 mg/dL (8.4-10.2); Carbon Dioxide 25 mmol/L (22-29); Chloride 107 mmol/L (96-108); Cholesterol 156 mg/dL (<200); Estimated Glomerular Filt Rate > 60; HDL Cholesterol 37 mg/dL (>40); Potassium 4.2 mmol/L (3.3-5.1); Sodium 138 mmol/L (135-145); Total Protein 7.2 g/dL (6.5-8.0); Triglycerides 144 mg/dL (<150)
== END 2025-08-05 07:34 | disposition home or self-care (01) ==
LOC: HO.LAB 07:33
PROVIDERS: PCP Internal Medicine; Visit Provider Internal Medicine
DX: Z00.00 Encounter for general adult medical examination without abnormal findings (principal); Z12.5 Encounter for screening for malignant neoplasm of prostate; I10 Essential (primary) hypertension; E78.2 Mixed hyperlipidemia
CPT/HCPCS: 36415; 80053; 80061; 84153

== ENCOUNTER 2025-09-21 20:28 | Emergency (ER) | payer OTHER, SELFPAY ==
--- NOTE | ~2025-09-21 | XR_ITS ---
CLINICAL HISTORY: chest pain 1 view chest x-ray. Comparison: None provided Findings: Heart size is normal. Tortuous thoracic aorta. No consolidation or effusion. The visualized upper abdomen is unremarkable. Calcific tendinopathy of the right rotator cuff. Multilevel degenerative changes of the spine. No acute displaced fracture. Impression: No acute cardiopulmonary process. This document has been electronically signed by: Jie Chambers MD on 09/21/2025 21:30:05
[2025-09-21 20:44] VITALS: BP 151/85; PULSE 76; RESP 20; TEMP 36.7; O2SAT 99; BMI 35.9
--- NOTE | 2025-09-21 20:50 | ECG_ITS ---
Test Reason : SOB Blood Pressure : */* mmHG Vent. Rate : 77 BPM Atrial Rate : 77 BPM P-R Int : 142 ms QRS Dur : 84 ms QT Int : 368 ms P-R-T Axes : 49 -3 42 degrees QTcB Int : 416 ms Normal sinus rhythm Normal ECG When compared with ECG of 02-Oct-2019 17:16, No significant change was found Referred By: Generic ED Physician Electronically Signed By: SUSAN HERRERA MD
[2025-09-21 21:06] LABS: Hematocrit 41.8 % (42.0-52.0); Hemoglobin 14.5 g/dl (14.0-18.0); Imm Gran Abs Auto 0.02 X10*3/uL (0.00-0.03); Imm Gran Pct Auto 0.3 % (0.0-0.4); Lymphocytes Absolute Auto 3.0 X10*3/uL (1.2-4.9); MANUAL DIFF FLAG NO; Mean Corpuscular HGB Conc 34.7 g/dl (31.0-36.0); Mean Corpuscular Hemoglobin 31.0 pg (27.0-33.0); Mean Corpuscular Volume 89.3 fL (80.0-98.0); NRBC Abs Auto 0.000 X10*3/uL (0.0-0.012); NRBC Pct Auto 0.0 /100WBC (0.0-0.2); Platelet Count 175 X10*3/uL (160-400); Red Blood Count 4.68 X10*6/uL (4.60-5.80); White Blood Count 7.3 X10*3/uL (4.8-10.8)
[2025-09-21 21:20] LABS: Alanine Aminotransferase 37 U/L (0-40); Albumin Level 4.5 g/dL (3.5-5.0); Alkaline Phosphatase 70 U/L (39-117); Anion Gap 11 (12-20); Aspartate Amino Transferase 24 U/L (5-37); Blood Urea Nitrogen 13 mg/dL (9-16); Calcium 9.4 mg/dL (8.4-10.2); Carbon Dioxide 24 mmol/L (22-29); Chloride 107 mmol/L (96-108); Creatinine Clr Calc Pharmacy 125.1; Estimated Glomerular Filt Rate > 60; Potassium 3.9 mmol/L (3.3-5.1); Sodium 138 mmol/L (135-145); Total Protein 7.1 g/dL (6.5-8.0)
[2025-09-21 21:38] LABS: Troponin-I High Sensitivity < 2.7 ng/L (<3.5-35.0)
[2025-09-21 23:35] VITALS: BP 141/85; PULSE 58; RESP 16; TEMP 36.6; O2SAT 98
--- OUTSIDE RECORDS SUMMARY | 2025-09-21 23:47 | XMS_ITS | Encounter Summary ---
Author Organization [employer] Address 75 [facility] 7 [place] [address] Care Team Providers Care Traffic Enumerator Name Role Phone Domingo Baker MD Primary Care Provide r Reason for Visit * Reason Comments Med Refill Encounter Details Date Type Department Care Team ([facility] st Contact Info) Description 03/08/2024 Refill [facility] [address] [place] [address] Domingo Baker MD [address] [place], [place] [phone] Primary hypertension Social History Tobacco Use Types [...] documented as of this encounter Care Teams Traffic Enumerator Relationship Specialty Start Date End Date Domingo Baker MD [address] [place] [phone] PCP - General Internal Medicine 10/11/14 documented as of this encounter
--- OUTSIDE RECORDS SUMMARY | 2025-09-21 23:47 | XMS_ITS | Encounter Summary ---
Author Organization [employer] Address 75 [facility] 7 [place] [address] Care Team Providers Care Packing Supervisor Name Role Phone Domingo Baker MD Primary Care Provide r Reason for Visit * Reason Comments Med Refill Encounter Details Date Type Department Care Team (Late st Contact Info) Description 02/23/2023 Refill [facility] 230 [place] [address] Domingo Baker MD 230 [place] [address] Primary hypertension Social History Tobacco Use Types [...] documented as of this encounter Care Teams Packing Supervisor Relationship Specialty Start Date End Date Domingo Baker MD 230 [place] [address] PCP - General Internal Medicine 10/11/14 documented as of this encounter
--- OUTSIDE RECORDS SUMMARY | 2025-09-21 23:47 | XMS_ITS | Encounter Summary ---
Author Organization [employer] Address 75 [facility] 7 [place] [address] Care Team Providers Care Panel Gluer Name Role Phone Domingo Baker MD Primary Care Provide r Encounter Details Date Type Department Care Team ([facility] st Contact Info) Description 03/13/2023 Abstract [facility] 230 [place] [address] Domingo Baker MD 230 [place] [address] Social History Tobacco Use Types Packs/Day Years [...] documented as of this encounter Care Teams Panel Gluer Relationship Specialty Start Date End Date Domingo Baker MD 230 [place] [address] PCP - General Internal Medicine 10/11/14 documented as of this encounter
--- OUTSIDE RECORDS SUMMARY | 2025-09-21 23:47 | XMS_ITS | Encounter Summary ---
Author Organization [employer] Address 75 [facility] 7t [place] [address] Care Team Providers Care Blending Coordinator Name Role Phone Domingo Baker MD Primary Care Provide r Encounter Details Date Type Department Care Team ([facility] Contact Info) Description 07/29/2023 Orders Only [facility] CHC MED & PEDS [address] [place], [place] [phone] Krystin Reeder LPN Social History Tobacco Use [...] documented as of this encounter Care Teams Blending Coordinator Relationship Specialty Start Date End Date Domingo Baker MD [address] [place] [phone] PCP - General Internal Medicine 10/11/14 documented as of this encounter
--- OUTSIDE RECORDS SUMMARY | 2025-09-21 23:47 | XMS_ITS | Encounter Summary ---
Author Organization [employer] Address 75 [facility] 7 [place] [address] Care Team Providers Care Assistant Professor Of Dietetics Name Role Phone Domingo Baker MD Primary Care Provide r Reason for Visit * Reason Onset Date Comments Returning Call 02/09/2024 Encounter Details Date Type Department Care Team ([facility] st Contact Info) Description 02/09/2024 Telephone [facility] 230 [place] [address] Domingo Baker MD 230 [place] [address] Returning Call Social History Tobacco Use Types [...] Direct contactinformation provided. Please contact pt at [phone]. documented in this encounter Plan of Treatment Not on file documented as of this encounter Visit Diagnoses Not on filedocumented in this encounter Additional Health Concerns Assessment Noted Time PHQ-9 Depression Total Score: 0 02/18/20 23 2:28 PM EDT documented as of this encounter Care Teams Assistant Professor Of Dietetics Relationship Specialty Start Date End Date Domingo Baker MD [address] [place] [phone] PCP - General Internal Medicine 10/11/14 documented as of this encounter
--- OUTSIDE RECORDS SUMMARY | 2025-09-21 23:47 | XMS_ITS | Encounter Summary ---
Author Organization [employer] Address 75 [facility] 7t [place] [address] Care Team Providers Care Residential Carpenter Name Role Phone Domingo Baker MD Primary Care Provide r Encounter Details Date Type Department Care Team ([facility] st Contact Info) Description 03/30/[address] [facility] CHC MED & PEDS [address] [place] [address] Krystin Reeder LPN Social History Tobacco Use [...] documented as of this encounter Care Teams Residential Carpenter Relationship Specialty Start Date End Date Domingo Baker MD [address] [place] [phone] PCP - General Internal Medicine 10/11/14 documented as of this encounter
--- OUTSIDE RECORDS SUMMARY | 2025-09-21 23:47 | XMS_ITS | Patient Health Record ---
Author Organization [facility] Address [address] [place] [address] Care Team Providers Care Meat Soaker Name Role Phone Satnam Freed MD, Domingo Primary Care Provide Mars Guerrero [phone] Allergies Allergen (clinical drug ingredient) Drug/Non Drug Allergy documented on EMR Reaction Allergy Type Onset Date Status Penicillin Unknown Drug Allergy Active Reason For Referral No Information Medications Medication SIG (Take, Route, Fr equency, Duration) Notes Start Date End Date Status Omeprazole 20 MG TAKE 1 CAPSULE BY MO UTH TWICE DAILY UNTIL FINISHED Oral; Duration: 14 Active metroNIDAZOLE 500 MG TAKE 1 TABLET BY MO UTH FOUR TIMES DAILY UNTIL FINISHED Oral; Duration: 14 Active Tetracycline HCl 500 MG TAKE 1 CAPSULE B Y MOUTH FOUR TIMES DAILY UNTIL FINISHED Oral; Duration: 14 Active Social History Tobacco Use: Social [...] Problem Status W/U Status Risk Notes Problem Screening for malignant neoplasm of colon (386993619) Encounter for screening for malignant neoplasm of colon (Z12.11) Active confirmed Problem Preprocedural examination (300740704463446) Preprocedural examination (Z01.818) Active confirmed Plan Of Treatment Future Test Test Name Order Date COLONOSCOPY 01/13/2018 Insurance Providers Payer Name Payer Address Payer Phone Subscriber Number Group Number Insured Name Patient Relationship to Insured Coverage Start Date Coverage End Date [employer] [address] [address] [place] [address] [phone] [id number] NUR[employer] LOVE Self - patient is the insured Medical (General) History Medical History History ICD Code Denies NC,DM,CVA,Lung disease,renal dise ase + H.pylori---01/2018 treated with [...]
--- OUTSIDE RECORDS SUMMARY | 2025-09-21 23:47 | XMS_ITS | Encounter Summary ---
Author Organization [employer] Address 75 [facility] 7 [place] [address] Care Team Providers Care Bisque Ware Dipper Name Role Phone Domingo Baker MD Primary Care Provide r Reason for Visit * Reason Comments Med Refill Encounter Details Date Type Department Care Team ([facility] st Contact Info) Description 08/28/2023 Refill [facility] MED[facility]INE 230 [place] [address] Domingo Baker MD 230 [place] [address] Low vitamin D level Social History Tobacco [...] documented as of this encounter Care Teams Bisque Ware Dipper Relationship Specialty Start Date End Date Domingo Baker MD [address] [place] [phone] PCP - General Internal Medicine 10/11/14 documented as of this encounter
--- OUTSIDE RECORDS SUMMARY | 2025-09-21 23:47 | XMS_ITS | Clinical Summary ---
Author Organization [employer] Address 75 [facility] 7t [place] [address] Care Team Providers Care Cooker Process Cheese Name Role Phone Domingo Baker MD Primary Care Provide r Allergies Active Allergy Reactions Criticality Noted Date Comments Penicillins Dizziness 08/31/2013 Medications Vitamin D High Potency 25 MCG (1000 UT) capsuleIndications :Low vitamin D level TAKE 1 CAPSULE BY MOUTH EVERY DAY 90 capsule 4 Active FREESTYLE LITE test stripIndications:T ype 2 diabetes mellitus without complications (HCC) TEST BLOOD SUGAR TWICE DAILY DIRECTED 50 strip 6 4 Active triamcinolone (Kenalog) 0.1 % cream Apply topically if needed in the morning and at bedtime (pain and swelling). 30 g 2 4 Active metFORMIN (Glucophage) 500 MG tablet TAKE 1 TABLET BY MOUTH EVERY DAY IN THE EVENING WITH A MEAL 90 tablet 2 5 Active Aspirin Low Dose 81 MG EC tablet TAKE 1 TABLET BY MOUTH EVERY MORNING 30 tablet 5 5 Active rosuvastatin (Crestor) 40 MG tabletIndications: Mixed hyperlipidemia TAKE 1 TABLET BY MOUTH EVERY DAY 90 tablet 1 5 Active lisinopril 20 MG tabletIndications: Primary hypertension TAKE 1 TABLET EVERY DAY 30 tablet 5 5 Active Active Problems Problem Noted Date Diagnosed Date Conjunctival hemorrhage of left eye 11/29/2024 Assessment & Plan (11/29/2024 3:27 PM EST): Called [facility] and as recommended, advised [...] the ER [facility] 11/08/2024 Assessment & Plan (08/01/2025 10:38 AM EDT): Seen by Dermatology, reasurred Assessment & Plan (11/08/2024 1:11 PM EST): [...] Preventative health care 05/17/2024 Assessment & Plan (08/01/2025 10:29 [...] Description 08/01/2025 10:30 AM EDT Office Visit [facility] [address] [place] [phone] Domingo Baker MD Type 2 diabetes mellitus without complication, without long-term current use of insulin ([facility]) (Primary Dx); Essential hypertension; Mixed hyperlipidemia; Lipoma of right forearm; Class 1 obesity due to excess calories with serious comorbidity and body mass index (BMI) of 31.0 to 31.9 in adult; Dietary counseling; Exercise counseling; Melanonychia; Encounter for immunization; Preventative health care 08/01/2025 Travel 07/31/2025 Telephone [facility] [address] [place] [phone] Domingo Baker MD chart prep 07/25/2025 Travel 07/21/2025 3:40 PM EDT Office Visit [facility] [address] [place], [place] [phone] [place], Esme, ASSISTANT MANAGER/EMBALMER COVID-19 (Primary Dx) 07/21/2025 Travel 07/14/2025 Refill [facility] [address] [place] [address] Domingo Baker MD Primary hypertension from Last 3 Months Immunizations Immunization Administration [...] housing situation today? I have mandeep sing 08/01/[address] you li [...] 05/02/2010 Dental X-Ray: Full Mouth 11/14/2020 11/13/2017, 02/0 12/2015 Diabetes: Urine Protein Screening 12/31/2022 12/31/2021 Dental X-Ray: Bitewings 07/07/2024 07/06/20 23, 11/13/2017, 07/07/2011, Additional history exists COVID-19 Vaccine ( season) 2025 05/02/2022, 10/08/2021, 02/16/2021 Alcohol/Substance Use Screening 09/22/2025 09/22/2024 Diabetes: Hemoglobin A1C 01/29/2026 025, 09/22/2024, 05/17/2024, Additional history exists Depression Screening 08/01/2026 08/01/2025, 08/01/20 25 Disability Screening 08/01/2026 08/01/2025 SDOH Screening 08/01/2026 08/01/2025 Tobacco Screening 08/01/2026 08/01/2025 Lipid Panel 08/05/2026 08/05/2025, 07/0 11/2023, 06/15/2023, Additional history exists Colonoscopy 03/24/2028 03/24/2018 Colorectal Cancer Screening 03/24/2028 [...] Procedure Name Priority Date/Time Associated Diagnosis Comments PSA, SCREEN Routine 08/05/2025 8:10 AM EDT Preventative health care LIPID PANEL, STANDARD Routine 08/05/2025 8:10 AM EDT Mixed hyperlipidemia COMPREHENSIVE METABOLIC PANEL Routine 08/05/2025 8:10 AM EDT Essential hypertension POCT GLUCOSE Routine 08/01/2025 11:11 AM EDT Type 2 diabetes mellitus without complication, without long-term current use of insulin ([facility]) POCT GLYCOSYLATED HEMOGLOBIN (HGB A1C) Routine 08/01/2025 11:09 AM EDT Type 2 diabetes mellitus without complication, without long-term current use of insulin ([facility]) POCT INFLUENZA B (ID NOW RAPID MOLECULAR) Routine 07/21/2025 3:53 PM EDT COVID-19 POCT INFLUENZA A (ID NOW RAPID MOLECULAR) Routine 07/21/2025 3:53 PM EDT COVID-19 POCT COVID-19 AG MARTINEZ ID NOW Routine 07/21/2025 3:53 PM EDT COVID-19 BITEWING - SINGLE RADIOGRAPHIC IMAGE Routine 07/06/2023 3:00 PM EDT Fractured dental church with loss of material ZZZ HISTORICAL HEPATITIS [...] Recently Relevant to Health Maintenance Results * PSA, Screen (08/05/2025 8:10 AM EDT) PSA, Total 1.09 <0.05 - 4.0 ng/mL [facility] Comment:PSA methodology: Joel Zhang i ChemiluminescentMicroparticle Immunoassay (CMIA) Blood Venous blood specimen / Unknown 08/05/2025 8:10 AM EDT 08/05/2025 8:10 AM EDT us Domingo Freed MD LAB BLOOD ORDERABLES Final Result [facility] [address] [place] [address] [phone] * (ABNORMAL) Lipid Panel, Standard (08/05/2025 8:10 AM EDT) Triglycerides 144 <150 mg/dL [facility] Comment:Desirable Triglyceri de: less than 150 mg/dLBorderline High Triglyceride 150-199 mg/dLHigh Triglyceride: 200-499 mg/dLVery High Triglyceride: greater than or equal to 5OO mg/dL Cholesterol 156 <200 mg/dL [facility] Comment:Desirable Cholestero l: less than 200 mg/dLBorderline High Cholesterol: 200-239 mg/dLHigh Cholesterol: greater than 239 mg/dL LDL Cholesterol Calculated 91 <100 mg/dL [facility] Comment:Desirable LDL: less than 100 mg/dLNear Optimal/Above Optimal LDL: 110- 129 mg/dLBorderline High LDL: 130-159 mg/dLHigh LDL: 160-189 mg/dLVery High LDL: greater than or equal to 190 mg/dL HDL Cholesterol 37(L) >40 mg/dL [facility] Comment:Desirable HDL: great er than 40 mg/dL Note: This HDL assay may give artificially low results in patients with liver disease. Blood Venous blood specimen / Unknown 08/05/2025 8:10 AM EDT 08/05/2025 8:10 AM EDT us Domingo Freed MD LAB BLOOD ORDERABLES Final Result [facility] [address] [place] [phone] * (ABNORMAL) Comprehensive Metabolic Panel (08/05/2025 8:10 AM EDT) Sodium 138 135 - 145 mmol/L [facility] Potassium 4.2 3.3 - 5.1 mmol/L [facility] Chloride 107 96 - 108 mmol/L [facility] Carbon Dioxide 25 22 - 29 mmol/L [facility] Anion Gap 10(L) 12 - 20 [facility] Urea Nitrogen (BUN) 14 9 - 16 mg/dL [facility] Creatinine, Serum 0.73 0.5 - 1.4 mg/dL [facility] Estimated Glomerular Filt Rate >60 [facility] Comment:Chronic Kidney Disea se: Estimated GFR < 60 mL/min/1.23u5Myutfs Kidney Disease: Estimated GFR < 15 mL/min/1.73m2 Glucose 133(H) 60 - 115 mg/dL [facility] Calcium 9.5 8.4 - 10.2 mg/dL [facility] Bilirubin, Total 0.8 0.0 - 1.0 mg/dL [facility] Aspartate Amino Transferase 27 5 - 37 U/L [facility] Alanine Aminotransferase 37 0 - 40 U/L [facility] Total Protein 7.2 6.5 - 8.0 g/dL [facility] Albumin Level 4.6 3.5 - 5.0 g/dL [facility] Alkaline Phosphatase 72 39 - 117 U/L [facility] Blood Venous blood specimen / Unknown 08/05/2025 8:10 AM EDT 08/05/2025 8:10 AM EDT Result Lachelle Freed MD LAB BLOOD ORDERABLES Final Result [facility] [address] [place] [address] [phone] * POCT glucose manually resulted (08/01/2025 11:11 AM EDT) Glucose Blood, POC 98 60 - 200 mg/dL QC Media Lot # [id number] Lot# Expiration Date 481, Blood Capillary blood specimen / Unknown 08/01/2025 11:11 AM EDT us Domingo Freed MD POINT OF CARE TEST EN TER/EDIT ORDERABLES Final Result * (ABNORMAL) POCT glycosylated hemoglobin (Hgb A1c) (08/01/2025 11:09 AM EDT) Hemoglobin A1C 6.0(A) 4.0 - 5.7 % QC Media Lot # [id number] Lot# Expiration Date , Blood Capillary blood specimen / Unknown 08/01/2025 11:09 AM EDT us Domingo Freed MD POINT OF CARE TEST EN TER/EDIT ORDERABLES Final Result * Influenza B (ID NOW Rapid Molecular) (07/21/2025 3:53 PM EDT) [facility] Influenza B Negative Negative, Indeterminate [facility] Swab 07/21/2025 3:53 PM EDT Result [facility] ASSISTANT MANAGER/EMBALMER POINT OF CARE TEST ENTER/EDIT ORDERABLES Final Result [facility] [address] [place] [phone] * Influenza A (ID NOW Rapid Molecular) (07/21/2025 3:53 PM EDT) Pathologist [facility] Influenza A Negative Negative, Indeterminate [facility] Swab 07/21/2025 3:53 PM EDT [facility] POINT OF CARE TEST ENTER/EDIT ORDERABLES Final Result Performing Organization Address City/[facility]/ZIP Co de Phone Number [facility] [address] [place] [phone] * POCT COVID-19 Ag Martinez ID NOW (07/21/2025 3:53 PM EDT) [facility] Coronavirus Antigen PCR Negative Negative, Indeterminate, None Detected, Invalid, Specimen unsatisfactory for evaluation, Weakly Positive, 2+ [facility] Swab 07/21/2025 3:53 PM EDT [facility] POINT OF CARE TEST ENTER/EDIT ORDERABLES Final Result Performing Organization Address [facility] de Phone Number [facility] [address] [place] [phone] * HEPATITIS C AB W/REFL TO HCV RNA, QN, PCR (03/11/2022 3:23 PM EDT) [facility] HEPATITIS C ANTIBODY NON-REACT JERMAIN NON-REACT JERMAIN [facility] INDEX 0.06 <1.00 [facility] Comment: HCV antibody was non-reactive. There is no laboratory evidence of HCV infection. In most cases, no further action is required. However, if recent HCV exposure is suspected, a test for HCV RNA (test code 19761) is suggested. For additional information please refer to http://education.BloomThat/faq/OXT56a6 (This link is being provided for informational/ educational purposes only.) 03/11/2022 3:23 PM EDT Domingo Freed MD HISTORICAL/NON ORDERA BLE LABS Final Result Performing Organization Address [facility] Co de Phone Number [facility] [address] * ALBUMIN, RANDOM URINE W/CREATININE (12/31/2021 8:25 AM EST) Microalbumin Urine 0.2 See Note: mg/dL [facility] Comment: Reference Range: Reference Range Not established Microalb/Creat Ratio 1 <30 mcg/mg creat [facility] Comment: The ADA defines abnormalities [...] Creatinine, Urine 139 20 - 320 mg/dL [facility] 12/31/2021 8:25 AM EST Domingo Freed MD LAB URINE ORDERABLES Final Result Performing Organization Address [facility] de Phone Number [facility] [address] * Hm Colonoscopy (03/24/2018) Colonoscopy Normal Normal 03/24/2018 Narrative Janie Pisano - 03/24/2018 1:10 PM EDT Recommended 10 year follow up ( see scanned notes ) Historical Provider HEALTH MAINTENANCE Final Result from Last 3 Months or Most Recently Relevant to Health Maintenance Insurance [facility] Care Teams Cooker Process Cheese Relationship Specialty Start Date End Date Domingo Baker MD [address] [place] [phone] PCP - General Internal Medicine 10/11/14
--- OUTSIDE RECORDS SUMMARY | 2025-09-21 23:47 | XMS_ITS | Encounter Summary ---
Author Organization [employer] Address 75 [facility] 7t [place] [address] Care Team Providers Care Billing Representative Name Role Phone Domingo Baker MD Primary Care Provide r Encounter Details Date Type Department Care Team ([facility] st Contact Info) Description 12/25/2022 Orders Only [facility] MED & PEDS [address] [place] [phone] Krystin Reeder LPN Social History Tobacco Use [...] on filedocumented in this encounter Care Teams Billing Representative Relationship Specialty Start Date End Date Domingo Baker MD [address] [place] [phone] PCP - General Internal Medicine 10/11/14 documented as of this encounter
--- OUTSIDE RECORDS SUMMARY | 2025-09-21 23:47 | XMS_ITS | Encounter Summary ---
Author Organization [employer] Address 75 [facility] 7t [place] [address] Care Team Providers Care Controls Design Engineer Name Role Phone Domingo Baker MD Primary Care Provide r Encounter Details Date Type Department Care Team ([facility] st Contact Info) Description 12/15/2022 Orders Only [facility] MEDICINE [address] [place], [place] [phone] Alivia Martell LPN Social History Tobacco Use [...] on filedocumented in this encounter Care Teams Controls Design Engineer Relationship Specialty Start Date End Date Domingo Baker MD [address] [place] [address] PCP - General Internal Medicine 10/11/14 documented as of this encounter
--- OUTSIDE RECORDS SUMMARY | 2025-09-21 23:47 | XMS_ITS | Encounter Summary ---
Author Organization [employer] Address 75 [facility] 7 [place] [address] Care Team Providers Care Senior Etl Developer Name Role Phone Domingo Baker MD Primary Care Provide r Reason for Visit * Reason Comments Med Refill Encounter Details Date Type Department Care Team (Late st Contact Info) Description 08/05/2023 Refill [facility] [address] [place] [address] Domingo Baker MD [address] [place] [address] Social History Tobacco Use Types Packs/Day Years [...] documented as of this encounter Care Teams Senior Etl Developer Relationship Specialty Start Date End Date Domingo Baker MD [address] [place] [address] PCP - General Internal Medicine 10/11/14 documented as of this encounter
--- NOTE | 2025-09-22 00:18 | ED.GENADULT ---
HPI - General Adult General Chief complaint: General Medical Stated complaint: High Blood Pressure Time Seen by Provider: 09/21/25 23:48 Source: patient Limitations: language barrier History of Present Illness ED Provider: Natividad Martínez PA-C HPI narrative: 59-year-old male with a history of hypertension, hyperlipidemia, diabetes who presents with concerns for hypertension. Patient states he was in jainism, he felt as if he was developing a headache, shakiness of his hands, he felt as if he was breathing heavy, he felt unwell. Patient states the last time this happened, he had elevated blood pressure. Patient states he took Tylenol, his headache resolved. Patient did not actually check his blood pressure. Denies chest pain. Related Data Home Medications ?Medication ?Instructions ?Recorded ?Confirmed aspirin 81 mg tablet,delayed 81 mg PO QAM 12/22/24 12/22/24 release lisinopril 20 mg tablet 20 mg PO DAILY 12/22/24 12/22/24 metformin 500 mg tablet 500 mg PO QPM 12/22/24 12/22/24 rosuvastatin 40 mg tablet 40 mg PO DAILY 12/22/24 12/22/24 Previous Rx's ?Medication ?Instructions ?Recorded hydrocortisone 1 % topical cream 1 appl topical BID PRN rash #28.4 08/27/24 grams Allergies Allergy/AdvReac Type Severity Reaction Status Date / Time Penicillins (PENICILLINS) Allergy Unknown PASS OUT Verified 09/21/25 20:50 Review of Systems Review of Systems: Yes all other systems are reviewed and are negative Constitutional: Constitutional: Denies fatigue, Denies fever(s), Reports headache(s) and Reports malaise ENT: Denies dizziness and Reports headache(s) Cardiovascular: Cardiovascular: Denies chest pain and Denies dyspnea Respiratory: Respiratory: Denies cough and Denies dyspnea Gastrointestinal: Gastrointestinal: Denies abdominal pain, Denies nausea and Denies vomiting Musculoskeletal: Musculoskeletal: Denies back pain and Denies myalgias Neurologic: Denies dizziness and Reports headache(s) Endocrine: Endocrine: Denies fatigue PMFSH Past Medical History Attestation statement: The following information was validated with the patient. Medical History (Updated 09/22/25 @ 00:21 by VAUGHN Diaz) Lipoma of arm Surgical History No pertinent past surgical history Social History Social History Alcohol intake: unknown Patient Tobacco Use Status: Tobacco use Unknown Advance Directives: No Advance Directives Information Provided: Yes Physical Exam ED Vital Signs: Vital Signs - 24 hr 09/21/25 20:44 09/21/25 23:35 09/22/25 00:50 Temperature 98.1 F 97.9 F 97.9 F Pulse Rate 76 58 58 Respiratory Rate 20 16 16 Blood Pressure 151/85 H 141/85 H 141/85 H Pulse Oximetry 99 98 98 Oxygen Delivery Method Room Air Room Air Room Air BMI result Body Mass Index 35.9 Const Other: alert well-appearing Orientation/consciousness: patient oriented x3 Resp Effort & Inspection: normal respiratory effort Cardio Other: normal peripheral perfusion Skin Other: warm dry no rash Neuro General: patient oriented x3, gait normal, no focal motor deficits and CN's II-XI intact bilaterally Psych Other: cooperative Medical Decision Making Medical Decision Making MDM Narrative: 59-year-old male with a history of hypertension, hyperlipidemia, diabetes who presents with concerns for hypertension. Patient states he was in jainism, he felt as if he was developing a headache, shakiness of his hands, he felt as if he was breathing heavy, he felt unwell. Patient states the last time this happened, he had elevated blood pressure. Patient states he took Tylenol, his headache resolved. Patient did not actually check his blood pressure. Denies chest pain. Problem: Known hypertension History: Per patient I have considered the following differential diagnoses: ACS, hypertensive urgency, hypertensive emergency, end-organ damage, viral syndrome Plan: Patient is a associated symptoms are completely nonspecific, they sound more viral in nature, I offered to add on a viral panel, the patient declines. ACS was considered, although the patient is not complaining of chest pain, he does have numerous risk factors for coronary artery disease, with screening labs, troponin obtained along with chest x-ray and EKG. We have no documented pressures that would be consistent with a hypertensive emergency or urgency. There was no evidence of end-organ damage. I have independently reviewed the following tests: Labs: No leukocytosis, not anemic, no electrolyte abnormality, troponin less than 2.7, blood sugar 111 EKG: Normal sinus rhythm, rate of 77, no ischemic changes no ectopy QTC 416 Chest x-ray:Findings: Heart size is normal. Tortuous thoracic aorta. No consolidation or effusion. The visualized upper abdomen is unremarkable. Calcific tendinopathy of the right rotator cuff. Multilevel degenerative changes of the spine. No acute displaced fracture. Impression: No acute cardiopulmonary process. Differential Diagnosis Differential Diagnoses: The differential diagnosis associated with the presentation includes See [facility] Admission/Observation Consideration of admission/observation: Escalation of care including admission/observation considered Not applicable Lab Data [facility] Lab Attestation statement: I reviewed the patient's lab results. 09/21/25 20:59 09/21/25 20:59 Labs: Lab Results 09/21/25 Range/Units 20:59 WBC 7.3 (4.8-10.8) X10*3/uL RBC 4.68 (4.60-5.80) X10*6/uL Hgb 14.5 (14.0-18.0) g/dl Hct 41.8 L (42.0-52.0) % MCV 89.3 (80.0-98.0) fL MCH 31.0 (27.0-33.0) pg MCHC 34.7 (31.0-36.0) g/dl RDW 12.3 (11.0-16.0) % Plt Count 175 (160-400) X10*3/uL MPV 9.5 (9.4-12.4) fL Immature Gran % (Auto) 0.3 (0.0-0.4) % Neut % (Auto) 45.7 (45-73) % Lymph % (Auto) 41.8 H (20-40) % [place] % (Auto) 9.9 (2-11) % Eos % (Auto) 1.7 (0-4) % Baso % (Auto) 0.6 (0-2) % Lymph # (Auto) 3.0 (1.2-4.9) X10*3/uL [place] # (Auto) 0.7 (0.1-1.2) X10*3/uL Eos # (Auto) 0.1 (0.0-0.4) X10*3/uL Baso # (Auto) 0.0 (0.0-0.2) X10*3/uL Abs Immat Gran (auto) 0.02 (0.00-0.03) X10*3/uL Absolute Neuts (auto) 3.3 (2.0-8.3) x10*3/uL Absolute Nucleated RBC 0.000 (0.0-0.012) X10*3/uL Nucleated RBC % (auto) 0.0 (0.0-0.2) /100WBC Sodium 138 (135-145) mmol/L Potassium 3.9 (3.3-5.1) mmol/L Chloride 107 (96-108) mmol/L Carbon Dioxide 24 (22-29) mmol/L Anion Gap 11 L (12-20) BUN 13 (9-16) mg/dL Creatinine 0.66 (0.5-1.4) mg/dL Estim Creat Clear Calc 125.1 Estimated GFR > 60 Random Glucose 111 (60-115) mg/dL Calcium 9.4 (8.4-10.2) mg/dL Total Bilirubin 0.4 (0.0-1.0) mg/dL AST 24 (5-37) U/L ALT 37 (0-40) U/L Alkaline Phosphatase 70 (39-117) U/L Troponin I High Sens < 2.7 (<3.5-35.0) ng/L Total Protein 7.1 (6.5-8.0) g/dL Albumin 4.5 (3.5-5.0) g/dL Independent Interpretation I performed an independent interpretation of an: EKG Radiology Impression Discussion of test interpretation with radiology: I have reviewed the radiologist's reading. Discharge Plan Discharge Clinical Impression: Hypertension Patient Disposition: Home, Self-Care Instructions: Chronic Hypertension (ED) Additional Instructions: All of your screening labs including a cardiac enzymes were normal. There were no concerning changes on the EKG in the chest x-ray was clear. We do not have documented elevated blood pressure here in the emergency room. Your blood pressure was within a reasonable range. The symptoms you were experiencing are nonspecific, perhaps you are developing viral illness. It is the flu season, we are beginning to see influenza and COVID, you should monitor yourself for progression of cough and cold symptoms. Follow up with your primary care provider as needed. Prescriptions: No Action hydrocortisone 1 % cream 1 appl topical BID PRN (Reason: rash) Qty: 28.4 0RF lisinopril 20 mg tablet 20 mg PO DAILY aspirin 81 mg tablet,delayed release (/EC) 81 mg PO QAM rosuvastatin 40 mg tablet 40 mg PO DAILY metformin 500 mg tablet 500 mg PO QPM Stand Alone Forms: Work/School Release Interventions: ED Discharge Assessment Last Done: 09/22/25 00:50 Discharge Date/Time: 09/22/25 00:51 Print Language: [place]
[2025-09-22 00:50] VITALS: BP 141/85; PULSE 58; RESP 16; TEMP 36.6; O2SAT 98
== END 2025-09-22 00:51 | disposition home or self-care (01) ==
PROVIDERS: Emergency Provider Emergency Medicine
DX: R51.9 Headache, unspecified (principal); R07.89 Other chest pain; R06.02 Shortness of breath; I10 Essential (primary) hypertension; Z79.899 Other long term (current) drug therapy
CPT/HCPCS: 36415; 71045; 80053; 84484; 85025; 93005; 99283

== ENCOUNTER → 2025-09-21 20:50 | Outpatient (BNV) | payer OTHER, SELFPAY | PROVIDERS: Emergency Provider Emergency Medicine; Visit Provider Internal Medicine Cardiovascular Disease | DX: R06.02 Shortness of breath (principal) | CPT/HCPCS: 93010 ==

== ENCOUNTER → 2025-09-21 20:50 | Outpatient (BNV) | payer OTHER, SELFPAY | PROVIDERS: Visit Provider Student in an Organized Health Care Education/Training Program | DX: R07.9 Chest pain, unspecified (principal) | CPT/HCPCS: 71045 ==